=== PATIENT | male | born 1940 | race Caucasian/White ===

== ENCOUNTER → 2018-11-22 12:48 | Outpatient (CLI) | payer MEDICARE, SELFPAY ==
--- NOTE | 2018-11-22 | DI.ECHO.S_ITS ---
[facility] +---------+ : : [address] : [place] : : : : [id number] : : : : Phone: [phone]+ Echocardiogram Report + + :Name: STEVE ADAN Study Date: 11/22/2018 Height: 74 in : :[facility] Exam Location: [facility] Weight: 200 lb : : Gender: Male BSA: 2.2 m2 : :: 1940 Age: 77 yrs BP: 142/80 mmHg: :Reason For Study: CHEST PAIN : : Performed By: Dago Fernandez : :Referring: CELIA MCMAHAN : + + Interpretation Summary 1) Mildly enlarged left ventricle with normal wall motion and normal systolic function (EF 60-65%). 2) Normal right ventricular size and function. 3) Moderate left atrium enlargement. 4) Moderate mitral regurgitation present. 5) The right ventricular systolic pressure is estimated to be at least 31 mmHg based on an estimated right atrial pressure of 3 mm Hg. 6) Compared to the Echo done 03/10/2013, no significant change when compared visually. Procedure: A two-dimensional transthoracic echocardiogram with color flow and Doppler was performed. The study quality was technically adequate. Comparison is made with the echocardiogram of 03/10/13. The patient was in normal sinus rhythm during the exam. Left Ventricle: There is mild asymmetric left ventricular hypertrophy. The left ventricle is mildly dilated. The ejection fraction is estimated to be 60- 65%. There are no focal wall motion abnormalities. Right Ventricle: The right ventricle is normal in size and function. Atria: The left atrium is moderately dilated. The right atrium is mildly dilated. The interatrial septum is intact with no evidence for an atrial septal defect. Mitral Valve: There is mild mitral annular calcification. There is suggestion of mild posterior leaflet prolapse in some views. There is moderate mitral regurgitation. Aortic Valve: The aortic valve is normal in structure and function. The aortic valve is trileaflet. The aortic valve opens well. No aortic regurgitation is present. Tricuspid Valve: The tricuspid valve is normal in structure and function. There is trace tricuspid regurgitation. The right ventricular systolic pressure is estimated to be at least 31 mmHg based on an estimated right atrial pressure of 3 mm Hg. Pulmonic Valve: The pulmonic valve is normal in structure and function. There is trace pulmonic regurgitation. Great Vessels: The aortic root is normal size. The ascending aorta is at the upper limits of normal in size. The pulmonary artery is normal size. The IVC is of normal diameter and collapses greater than 50% with a sniff. This suggests a low right atrial pressure of 3 mm Hg. Pericardium/ Pleura There is no pericardial effusion. There is no pleural effusion. MMode/2D Measurements & Calculations LVIDd: 5.8 cm LVOT diam: 2.3 cm LVIDs: 2.9 cm Ao root diam: 3.3 cm FS: 49.2 % Aortic Jxn: 2.7 cm EPSS: 0.44 cm asc Aorta Diam: 3.6 cm IVSd: 1.3 cm LVPWd: 1.0 cm LV castro. diameter/BSA (cm/m^2): 2.7 LV sys. diameter/BSA (cm/m^2): 1.3 LA dimension: 4.1 cm RA long axis: 5.3 cm LA A2 area: 24.6 cm2 RA area: 22.6 cm2 LA A4 area: 24.3 cm2 RA vol: 82.4 ml LA length (vol): 5.6 cm RA : 37.9 ml/m2 LA vol: 90.3 ml IVC diam: 1.7 cm LA vol index: 41.6 ml/m2 Doppler Measurements & Calculations Ao V2 max: 146.9 cm/sec LVOT Max Harinder: 111.8 cm/sec Ao V2 mean: 106.2 cm/sec LV V1 max P.0 mmHg Ao max P.6 mmHg LV V1 VTI: 22.5 cm Ao mean P.8 mmHg MASTER(I,D): 3.0 cm2 Ao V2 VTI: 33.0 cm MASTER(V,D): 3.3 cm2 sev ratio: 0.68 MASTER indexed to BSA (cm^2/m^2): 1.4 MV E max harinder: 49.5 cm/sec TR max harinder: 262.7 cm/sec MV A max harinder: 76.0 cm/sec TR max P.6 mmHg MV E/A: 0.65 PA V2 max: 82.6 cm/sec Med Peak E' Harinder: 3.9 cm/sec PA V2 mean: 58.1 cm/sec E/E' med: 12.6 PA mean P.5 mmHg Lat Peak E' Harinder: 7.3 cm/sec PA pr(Accel): 39.1 mmHg E/E' lat: 6.8 PA Accel Time: 0.09 sec E/e' average: 9.7 MV dec time: 0.23 sec SV(LVOT): 97.4 ml Reading Physician:04:12 PM
--- NOTE | 2018-11-23 14:55 | P.PCN_ITS ---
Cardiac Stress Test Report Referral & Results Date Patient Seen: 11/23/18 Requesting provider: Chela Wayne Indication: Chest pain Rest ECG: Unremarkable Procedure Note: Today following both written and verbal informed consent the patient was exercised according to a standard Srinivasa protocol patient went for a total of 5 min 22 sec achieving a maximum heart rate of 124 maximum systolic blood pressure of to 110. This is approximately 7.0 METS. Exercise was terminated at this point because of targets for med and patient was unable to go any farther or faster. Patient was also given Cardiolite through a previously started Hep-Lock IV by the nuclear equipment test engineer approximately 1 minute prior to the cessation of exercise. With exercise there were minimal ST segment depression that was all upsloping in the inferior leads that very rapidly resolved in early recovery the suggesting a nonischemic nature Occasional PVCs, multifocal, including ventricular couplets were identified Rare PACs were also identified Functional aerobic impairment rated about 10% on the active scale Impression: No ECG evidence of ischemia Ventricular dysrhythmia as above Please see perfusion imaging report for details regarding possible ischemia as well. Please note: Actual ECG tracings can be found in the PACS system.
--- NOTE | 2018-11-24 06:58 | DI.NM.S_ITS ---
DATE OF SERVICE: 11/22/2018 PROCEDURE: Exercise stress test. INDICATION: Chest pain with known history of coronary artery disease (CAD), status post LAD and RCA stent in 2013 with hypertension and hyperlipidemia. RADIOPHARMACEUTICAL: 26.9 mCi technetium-99m Myoview IV was injected at stress, and 25.6 mCi technetium-99m Myoview IV was injected at rest. CARDIAC STRESS: Patient underwent exercise perfusion study under the supervision of an attending staff. He walked on Srinivasa protocol for 5 minutes 22 seconds and achieved 87% of target heart rate, 7 METs of workload, and functional aerobic impairment of +10%. Patient has hypertensive blood pressure response. Peak blood pressure 210/80. Resting blood pressure 140/78. No chest pain. Patient unable to go faster on treadmill. Baseline EKG revealed sinus rhythm. During stress, there were no convincing ischemic changes. At peak exercise, patient had some isolated PVCs without any ventricular tachycardia. In the immediate recovery, patient had 1 episode of Wenckebach but QRS complex remains narrow QRS complex. Patient also has first-degree AV block. No high- degree AV block seen. RAW DATA: There appears to be adequate myocardial perfusion. GATED STUDY: Stress LV ejection fraction 73% without any obvious wall motion abnormalities. Resting end-diastolic volume 120 mL. No transient ischemic dilatation. TID ratio is 0.94, which is within normal limits. Lung/heart ratio is 0.28, which is within normal limits. MYOCARDIAL PERFUSION: There was normal myocardial perfusion. CONCLUSION: This is a normal myocardial perfusion study. No evidence of convincing ischemia or infarction. Preserved LV function. In the immediate recovery, patient had 1 episode of Wenckebach as well as first-degree AV block without any high-degree AV block. QRS duration remained narrow during Wenckebach. Patient had perfusion study in September 2016. At that time, he was able to walk 7 minutes and 32 seconds on treadmill and had normal myocardial perfusion. At that time, he has baseline PVCs which got improved during exercise and during recovery has PACs. If patient has history of recurrent dizziness or syncope, provide prolonged Holter monitor to rule out significant bradyarrhythmias. Clinical correlation is recommended. Quoc Tavares - SHABBIR/bree/gutierrez doc#: [id number]/job#: [id number] dd: 11/23/2018 18:05:00 dt: 11/24/2018 04:38:00 DICTATING MD/COPIES TO: Enrique Arrieta MD COPIES MNE: ADELFO
== END ==
PROVIDERS: Family Provider Internal Medicine; PCP Internal Medicine; Visit Provider Student in an Organized Health Care Education/Training Program
DX: I34.0 Nonrheumatic mitral (valve) insufficiency (principal); I49.3 Ventricular premature depolarization; R07.9 Chest pain, unspecified; I25.10 Atherosclerotic heart disease of native coronary artery without angina pectoris; I10 Essential (primary) hypertension; E78.5 Hyperlipidemia, unspecified; Z95.5 Presence of coronary angioplasty implant and graft
CPT/HCPCS: 78452; 93016; 93017; 93018; 93306; A9502

== ENCOUNTER 2018-12-19 17:19 | Emergency (ER) | payer MEDICARE, SELFPAY ==
[2018-12-19 17:34] VITALS: BP 163/74; PULSE 58; RESP 18; TEMP 36.5; O2SAT 99; BMI 25.6
--- NOTE | 2018-12-19 17:49 | DI.RAD.S_ITS ---
PROCEDURE: XR THORACIC SPINE 3V INDICATIONS: upper to mid upper back TECHNIQUE: 4 views of the thoracic spine were acquired. COMPARISON: None. FINDINGS: Bones: No acute fractures or dislocations. No acute compression fractures of the thoracic spine. Multilevel thoracic spondylitic changes. No suspicious bony lesions. Soft tissues: No paravertebral stripe thickening. IMPRESSION: Multilevel thoracic spondylosis. No acute fracture or acute compression fractures. Dictated by: Salbador Durham M.D. on 12/19/2018 at 18:38 Approved by: Salbador Durham M.D. on 12/19/2018 at 18:39
--- NOTE | 2018-12-19 18:21 | PC.NURSE ---
Pt fell on side and has pain in center of shoulder blades. Denies other symptoms.
[2018-12-19] MEDS: HYDROCODONE/ACET 5/325 PREPACK 1 BOTTLE MISC (18:50)
[2018-12-19 19:40] VITALS: BP 126/61; PULSE 62; RESP 16; TEMP 36.4; O2SAT 96
--- NOTE | 2018-12-20 01:15 | ED.BACK ---
HPI - Back Pain/Injury General Chief Complaint: Back Pain/Injury Stated Complaint: hit trailer and fell over on right side, in pain Time Seen by Provider: 12/19/18 18:07 Source: patient and family Mode of arrival: ambulatory Limitations: no limitations History of Present Illness HPI Narrative: 77-year-old male nonsmoker with history of hypertension presents with his for evaluation of mid thoracic back pain after a mechanical fall earlier today. The patient was walking around the back of his pickup truck and tripped over the trailer hitch and fell onto his right side. He did not make direct impact with his back. Since the fall he has had mid upper back pain which is worse with motion and improves with rest. He denies any chest pain or shortness of breath. He denies nausea, vomiting. He denies any loss of consciousness or use of blood thinners. He has full recall of the event. He denies other injury.. He has no numbness, tingling or weakness. MD Complaint: back pain, back injury and fall Onset (ago): hour(s) Duration: constant Similar Symptoms Previously: No Location: thoracic spine Severity: moderate Quality: sharp and stabbing Radiation: none Relieving factors: sitting upright Exacerbating factors: movement Context: fall Associated symptoms: denies other symptoms Related Data Home Medications Medication Instructions Recorded Confirmed aspirin 325 mg PO HS #0 08/19/11 amlodipine [Norvasc] 5 mg PO QDAY #0 tab 06/06/16 atorvastatin [Lipitor] 20 mg PO HS #30 tab 06/06/16 Previous Rx's Medication Instructions Recorded cephalexin [Keflex] 500 mg PO TID #21 cap 06/06/16 cyclobenzaprine 10 mg PO TID PRN #14 tab 12/19/18 hydrocodone-acetaminophen 1 tab PO Q4-6H PRN #10 tab 12/19/18 Allergies Allergy/AdvReac Type Severity Reaction Status Date / Time lisinopril [LISINOPRIL] AdvReac Mild COUGH Verified 12/19/18 17:39 Review of Systems Constitutional Denies chills, Denies fever(s), Denies lethargy and Denies weakness Eyes Denies change in vision, Denies eye discharge, Denies irritation and Denies loss of vision ENT Ears, Nose, Mouth, and Throat: Denies change in voice, Denies neck pain and Denies sore throat Cardiovascular Denies chest pain, Denies irregular heart rhythm, Denies lightheadedness, Denies palpitations, Denies dyspnea, Denies dyspnea on exertion and Denies orthopnea Respiratory Denies cough, Denies dyspnea, Denies dyspnea on exertion and Denies wheezing Gastrointestinal Gastrointestinal: Denies abdominal pain, Denies change in bowel habits, Denies diarrhea, Denies nausea and Denies vomiting Genitourinary Denies hematuria, Denies flank pain, Denies urinary incontinence and Denies urinary urgency Musculoskeletal Reports back pain and Denies neck pain Integumentary/Breasts Denies pruritus, Denies erythema, Denies rash and Denies wounds Neurologic Denies confusion, Denies loss of vision and Denies weakness Psychiatric Denies anxiety, Denies confusion, Denies depression, Denies homicidal ideation and Denies suicidal ideation Endocrine Denies palpitations Hematologic/Lymphatic Denies easy bruising Allergic/Immunologic Denies wheezing PFSH Social History Smoking Status: Never smoker Social History Smoking Status: Never smoker Exam Narrative Exam Narrative: GENERAL: This is a well-nourished, well-developed patient, in mild distress. GCS 15 HEAD: Atraumatic. Normocephalic. No temporal or scalp tenderness. EYES: Pupils equal round and reactive. Extraocular motions intact. No scleral icterus. No injection or drainage. ENT: Nose without bleeding, purulent drainage or septal hematoma. Throat without erythema, tonsillar hypertrophy or exudate. Uvula midline. Airway patent. NECK: Trachea midline. No JVD or lymphadenopathy. Supple, nontender, no meningeal signs. CARDIOVASCULAR: Regular rate and rhythm without murmurs, gallops, or rubs. RESPIRATORY: Clear to auscultation. Breath sounds equal bilaterally. No wheezes, rales, or rhonchi. GASTROINTESTINAL: Abdomen soft, non-tender, nondistended. No hepato-splenomegaly, or palpable masses. No guarding. EXTREMITIES: No clubbing, cyanosis, or edema. No joint tenderness, effusion, or edema noted. BACK: mid thoracic paraspinal tenderness, no bony tenderness or step-off. No flank tenderness. NEURO: AOx3. SKIN: No rash or erythema. Initial Vital Signs Initial Vital Signs: Vital Signs Temperature 97.7 F 12/19/18 17:34 Pulse Rate 58 L 12/19/18 17:34 Respiratory Rate 18 12/19/18 17:34 Blood Pressure 163/74 H 12/19/18 17:34 Pulse Oximetry 99 12/19/18 17:34 Course Orders Ordered: ED Orders 12/19/18 17:49 XR thoracic spine 3V Stat Discontinued Medications Hydrocodone Bitart/Acetaminophen (Vicodin Prepack) 1 bottle MISC SEEINSTR ONE Stop: 12/19/18 18:40 Last Admin: 12/19/18 18:50 Dose: 1 bottle Vital Signs - 8 hr 12/19/18 17:34 12/19/18 19:40 Temperature 97.7 F 97.5 F L Pulse Rate 58 L 62 Respiratory Rate 18 16 Blood Pressure 163/74 H 126/61 Pulse Oximetry 99 96 [facility] - Back Pain/Injury Imaging Data Thoracic Xray: Radiologist's impression: [address] [address] XRay Report Signed Patient: Quoc Tavares WMR#: [id number] : 1940cct:[id number] Age/Sex: 77 / MDate of Service: 12/19/18 Loc: ED Accession Number: [id number] Procedure: XR thoracic spine 3V Ordering Provider: Isac Hannon M.D. PROCEDURE: XR THORACIC SPINE 3V INDICATIONS: upper to mid upper back TECHNIQUE: 4 views of the thoracic spine were acquired. COMPARISON: None. FINDINGS: Bones: No acute fractures or dislocations. No acute compression fractures of the thoracic spine. Multilevel thoracic spondylitic changes. No suspicious bony lesions. Soft tissues: No paravertebral stripe thickening. IMPRESSION: Multilevel thoracic spondylosis. No acute fracture or acute compression fractures. Dictated by: Salbador Durham M.D. on 12/19/2018 at 18:38 Approved by: Salbador Durham M.D. on 12/19/2018 at 18:39 [facility] Narrative Medical decision making narrative: patient had a purely mechanical fall and denies any prodromal symptoms. He landed on his right arm which is asymptomatic, but complains of midthoracic pain. X-ray is unremarkable. discussion at bedside with patient and regarding the need for advanced imaging, which is not indicated right now. They have been given return precautions and have verbalized understanding. They had questions answered to their apparent satisfaction Discharge Plan Departure Patient Disposition: Home Clinical Impression: Thoracic back pain Qualifiers: Chronicity: acute Back pain laterality: midline Qualified Code(s): M54.6 - Pain in thoracic spine Discharge Date/Time: 12/19/18 19:44 Interventions: ED Discharge Assessment Last Done: 12/19/18 19:40 Instructions: DI for Muscle Strain Activity Restrictions/Additional Instructions: *You have been diagnosed with [ acute thoracic strain] *What to do: *Take medications as directed *Follow up with your primary care provider in 2-3 days, call for an appointment. Let them know you were seen in the Emergency Department and that we ask that you be seen in follow up *Return to ER if you should have any new, worsening or concerning symptoms, such as [ worsening pain, shortness of breath or other bothersome symptoms] You have been prescribed narcotic medications. While on these medications you cannot drive or operate heavy machinery. Additionally you cannot sign legal documents or perform any duties such as this. Many people get constipated on narcotic medications so it would be advisable to discuss stool softeners with the pharmacist when you roll picker your prescription. Please understand that we cannot provide further refills of narcotics or controlled substances through the ED and your pain management will need to be through your Primary Care Provider Prescriptions: New cyclobenzaprine 10 mg tablet 10 mg PO TID PRN (Reason: muscle spasm) Qty: 14 RF: 0 hydrocodone-acetaminophen 5-325 mg tablet 1 tab PO Q4-6H PRN (Reason: pain) Qty: 10 RF: 0 No Action aspirin 325 MG tablet,delayed release (DR/EC) 325 mg PO HS Qty: 0 RF: 0 atorvastatin [Lipitor] 20 MG tablet 20 mg PO HS Qty: 30 RF: 0 amlodipine [Norvasc] 5 MG tablet 5 mg PO QDAY Qty: 0 RF: 0 cephalexin [Keflex] 500 MG capsule 500 mg PO TID Qty: 21 RF: 0 Referrals: Edis Okeefe MD [Primary Care Provider] -
--- NOTE | 2018-12-20 01:20 | ED_ITS ---
HPI - Back Pain/Injury General Chief Complaint: Back Pain/Injury Stated Complaint: hit trailer and fell over on right side, in pain Time Seen by Provider: 12/19/18 18:07 Source: patient and family Mode of arrival: ambulatory Limitations: no limitations History of Present Illness HPI Narrative: 77-year-old male nonsmoker with history of hypertension presents with his for evaluation of mid thoracic back pain after a mechanical fall earlier today. The patient was walking around the back of his pickup truck and tripped over the trailer hitch and fell onto his right side. He did not make direct impact with his back. Since the fall he has had mid upper back pain which is worse with motion and improves with rest. He denies any chest pain or shortness of breath. He denies nausea, vomiting. He denies any loss of consciousness or use of blood thinners. He has full recall of the event. He denies other injury.. He has no numbness, tingling or weakness. MD Complaint: back pain, back injury and fall Onset (ago): hour(s) Duration: constant Similar Symptoms Previously: No Location: thoracic spine Severity: moderate Quality: sharp and stabbing Radiation: none Relieving factors: sitting upright Exacerbating factors: movement Context: fall Associated symptoms: denies other symptoms Related Data Home Medications Medication Instructions Recorded Confirmed aspirin 325 mg PO HS #0 08/19/11 amlodipine [Norvasc] 5 mg PO QDAY #0 tab 06/06/16 atorvastatin [Lipitor] 20 mg PO HS #30 tab 06/06/16 Previous Rx's Medication Instructions Recorded cephalexin [Keflex] 500 mg PO TID #21 cap 06/06/16 cyclobenzaprine 10 mg PO TID PRN #14 tab 12/19/18 hydrocodone-acetaminophen 1 tab PO Q4-6H PRN #10 tab 12/19/18 Allergies Allergy/AdvReac Type Severity Reaction Status Date / Time lisinopril [LISINOPRIL] AdvReac Mild COUGH Verified 12/19/18 17:39 Review of Systems Constitutional Denies chills, Denies fever(s), Denies lethargy and Denies weakness Eyes Denies change in vision, Denies eye discharge, Denies irritation and Denies loss of vision ENT Ears, Nose, Mouth, and Throat: Denies change in voice, Denies neck pain and Denies sore throat Cardiovascular Denies chest pain, Denies irregular heart rhythm, Denies lightheadedness, Denies palpitations, Denies dyspnea, Denies dyspnea on exertion and Denies orthopnea Respiratory Denies cough, Denies dyspnea, Denies dyspnea on exertion and Denies wheezing Gastrointestinal Gastrointestinal: Denies abdominal pain, Denies change in bowel habits, Denies diarrhea, Denies nausea and Denies vomiting Genitourinary Denies hematuria, Denies flank pain, Denies urinary incontinence and Denies urinary urgency Musculoskeletal Reports back pain and Denies neck pain Integumentary/Breasts Denies pruritus, Denies erythema, Denies rash and Denies wounds Neurologic Denies confusion, Denies loss of vision and Denies weakness Psychiatric Denies anxiety, Denies confusion, Denies depression, Denies homicidal ideation and Denies suicidal ideation Endocrine Denies palpitations Hematologic/Lymphatic Denies easy bruising Allergic/Immunologic Denies wheezing PFSH Social History Smoking Status: Never smoker Social History Smoking Status: Never smoker Exam Narrative Exam Narrative: GENERAL: This is a well-nourished, well-developed patient, in mild distress. GCS 15 HEAD: Atraumatic. Normocephalic. No temporal or scalp tenderness. EYES: Pupils equal round and reactive. Extraocular motions intact. No scleral icterus. No injection or drainage. ENT: Nose without bleeding, purulent drainage or septal hematoma. Throat without erythema, tonsillar hypertrophy or exudate. Uvula midline. Airway patent. NECK: Trachea midline. No JVD or lymphadenopathy. Supple, nontender, no meningeal signs. CARDIOVASCULAR: Regular rate and rhythm without murmurs, gallops, or rubs. RESPIRATORY: Clear to auscultation. Breath sounds equal bilaterally. No wheezes, rales, or rhonchi. GASTROINTESTINAL: Abdomen soft, non-tender, nondistended. No hepato- splenomegaly, or palpable masses. No guarding. EXTREMITIES: No clubbing, cyanosis, or edema. No joint tenderness, effusion, or edema noted. BACK: mid thoracic paraspinal tenderness, no bony tenderness or step-off. No flank tenderness. NEURO: AOx3. SKIN: No rash or erythema. Initial Vital Signs Initial Vital Signs: Vital Signs Temperature 97.7 F 12/19/18 17:34 Pulse Rate 58 L 12/19/18 17:34 Respiratory Rate 18 12/19/18 17:34 Blood Pressure 163/74 H 12/19/18 17:34 Pulse Oximetry 99 12/19/18 17:34 Course Orders Ordered: ED Orders 12/19/18 17:49 XR thoracic spine 3V Stat Discontinued Medications Hydrocodone Bitart/Acetaminophen (Vicodin Prepack) 1 bottle MISC SEEINSTR ONE Stop: 12/19/18 18:40 Last Admin: 12/19/18 18:50 Dose: 1 bottle Vital Signs - 8 hr 12/19/18 17:34 12/19/18 19:40 Temperature 97.7 F 97.5 F L Pulse Rate 58 L 62 Respiratory Rate 18 16 Blood Pressure 163/74 H 126/61 Pulse Oximetry 99 96 [facility] - Back Pain/Injury Imaging Data Thoracic Xray: Radiologist's impression: [address] [address] XRay Report Signed Patient: Quoc Tavares WMR#: [id number] : [id number]:[id number] Age/Sex: 77 / MDate of Service: 12/19/18 Loc: ED Accession Number: [id number] Procedure: XR thoracic spine 3V Ordering Provider: Isac Hannon M.D. PROCEDURE: XR THORACIC SPINE 3V INDICATIONS: upper to mid upper back TECHNIQUE: 4 views of the thoracic spine were acquired. COMPARISON: None. FINDINGS: Bones: No acute fractures or dislocations. No acute compression fractures of the thoracic spine. Multilevel thoracic spondylitic changes. No suspicious bony lesions. Soft tissues: No paravertebral stripe thickening. IMPRESSION: Multilevel thoracic spondylosis. No acute fracture or acute compression fractures. Dictated by: Salbador Durham M.D. on 12/19/2018 at 18:38 Approved by: Salbador Durham M.D. on 12/19/2018 at 18:39 [facility] Narrative Medical decision making narrative: patient had a purely mechanical fall and denies any prodromal symptoms. He landed on his right arm which is asymptomatic, but complains of midthoracic pain. X-ray is unremarkable. discussion at bedside with patient and regarding the need for advanced imaging, which is not indicated right now. They have been given return precautions and have verbalized understanding. They had questions answered to their apparent satisfaction Discharge Plan Departure Patient Disposition: Home Clinical Impression: Thoracic back pain Qualifiers: Chronicity: acute Back pain laterality: midline Qualified Code(s): M54.6 - Pain in thoracic spine Discharge Date/Time: 12/19/18 19:44 Interventions: ED Discharge Assessment Last Done: 12/19/18 19:40 Instructions: DI for Muscle Strain Activity Restrictions/Additional Instructions: *You have been diagnosed with [ acute thoracic strain] *What to do: *Take medications as directed *Follow up with your primary care provider in 2-3 days, call for an appoi ntment. Let them know you were seen in the Emergency Department and that we ask that you be seen in follow up *Return to ER if you should have any new, worsening or concerning symptoms, such as [ worsening pain, shortness of breath or other bothersome symptoms] You have been prescribed narcotic medications. While on these medications you cannot drive or operate heavy machinery. Additionally you cannot sign legal documents or perform any duties such as this. Many people get constipated on narcotic medications so it would be advisable to discuss stool softeners with the pharmacist when you package pick up your prescription. Please understand that we cannot provide further refills of narcotics or controlled substances through the ED and your pain management will need to be through your Primary Care Provider Prescriptions: New cyclobenzaprine 10 mg tablet 10 mg PO TID PRN (Reason: muscle spasm) Qty: 14 RF: 0 hydrocodone-acetaminophen 5-325 mg tablet 1 tab PO Q4-6H PRN (Reason: pain) Qty: 10 RF: 0 No Action aspirin 325 MG tablet,delayed release (DR/EC) 325 mg PO HS Qty: 0 RF: 0 atorvastatin [Lipitor] 20 MG tablet 20 mg PO HS Qty: 30 RF: 0 amlodipine [Norvasc] 5 MG tablet 5 mg PO QDAY Qty: 0 RF: 0 cephalexin [Keflex] 500 MG capsule 500 mg PO TID Qty: 21 RF: 0 Referrals: Edis Okeefe MD [Primary Care Provider] -
== END 2018-12-19 19:44 | disposition home or self-care (01) ==
PROVIDERS: Emergency Provider Emergency Medicine; PCP Internal Medicine
DX: M54.6 Pain in thoracic spine (principal); W01.0XXA Fall on same level from slipping, tripping and stumbling without subsequent striking against object, initial encounter
CPT/HCPCS: 72072; 99282; 99283

== ENCOUNTER 2019-04-13 07:57 | Day surgery (SDC) | payer MEDICARE, SELFPAY ==
--- NOTE | 2019-04-13 | PATH_ITS ---
[facility] Accession Number: [id number] . 01 Material submitted: . PART A: cecum - CECAL POLYPS PART B: colon - ASCENDING COLON POLYPS PART C: colon - TRANSVERSE COLON POLYPS . 01 Clinical history: . COLONOSCOPY W/POLYPECTOMY . 02 Diagnosis: A. Cecum, Polyps: Fragments of tubular adenoma. . B. Ascending Colon, Polyps: Fragments of tubular adenoma and fragment of sessile serrated adenoma. . C. Transverse Colon, Polyps: Fragments of tubular adenoma and fragment of hyperplastic polyp. V/04/14/2019 . 02 Electronically signed: . Jim Head MD, PhD, Pathologist NPI- [id number] . 01 Gross description: . Part A: CECAL POLYPS: Received in formalin are multiple fragment(s) of haley, soft tissue measuring 0.1 x 0.1 x 0.1 cm to 0.3 x 0.3 x 0.2 cm which is entirely submitted and submitted entirely in 1 cassette(s) Part B: ASCENDING COLON POLYPS: Received in formalin are multiple fragment(s) of haley, soft tissue measuring 0.1 x 0.1 x 0.1 cm to 0.3 x 0.3 x 0.2 cm which is entirely submitted and submitted entirely in 1 cassette(s) Part C: TRANSVERSE COLON POLYPS: Received in formalin is 1 fragment(s) of haley, soft tissue measuring 0.1 x 0.1 x 0.1 cm to 0.3 x 0.2 x 0.2 cm which is entirely submitted and submitted entirely in 1 cassette(s) /[facility] . 02 Pathologist provided ICD-10: D12.0, D12.2, D12.3 . 02 CPT . 233343, 160302, [id number] Performed at: 01 [facility] [address] [place] [address], [place], [place] [id number] MD Dalton Morillo MD Phone: [phone] [facility]formed at: [facility] [address] [place], [place] [id number] MD Beatriz Gary MD Phone: [phone]
[2019-04-13 08:04] VITALS: BMI 25.6
[2019-04-13 08:16] VITALS: BP 131/68; PULSE 55; RESP 16; TEMP 36.1; O2SAT 95
[2019-04-13 08:18] VITALS: BMI 25.6
--- NOTE | 2019-04-13 08:40 | PM.HP.1 ---
History of Present Illness Chief complaint: 40066 Colonoscopy Patient History Social History household members: spouse Smoking Status: Never smoker Family & Social History Social History: household members spouse Tobacco & Substance use: Smoking Status Never smoker alcohol intake frequency a few times a week Substance Use Type does not use Meds Home Medications Medication Instructions Recorded Confirmed Type aspirin 325 mg PO HS #0 08/19/11 History amlodipine [Norvasc] 5 mg PO QDAY #0 tab 06/06/16 History atorvastatin [Lipitor] 20 mg PO HS #30 tab 06/06/16 History carvedilol 3.125 mg PO BID 04/13/19 04/13/19 History hydrochlorothiazide 12.5 mg PO DAILY 04/13/19 04/13/19 History isosorbide dinitrate 30 mg PO BID 04/13/19 04/13/19 History losartan 50 mg PO BID 04/13/19 04/13/19 History Allergies Allergy/AdvReac Type Severity Reaction Status Date / Time lisinopril [LISINOPRIL] AdvReac Mild COUGH Verified 12/19/18 17:39 Review of Systems Review of Systems All systems reviewed & are unremarkable except as noted in HPI and below Exam Vital Signs (past 8 hours): - 04/13/19 08:16 Temperature 97.0 F L Pulse Rate 55 L Respiratory Rate 16 Blood Pressure 131/68 Pulse Oximetry 95 Oxygen Delivery Method Room Air Narrative Exam Narrative: Awake alert and oriented x3, pupils equal round reactive to light, heart regular rate rhythm, lungs clear, abdomen nondistended nontender, no lower extremity edema Assessment & Plan Assessment & Plan narrative: Screening colonoscopy
[2019-04-13] MEDS: SODIUM CHLORIDE 0.9% 1,000 ML 200 ML IV (08:55)
[2019-04-13] MEDS: MIDAZOLAM 5 MG/5 ML VIAL IV (09:32)
[2019-04-13] MEDS: fentaNYL 250 MCG/5 ML INJ IV (09:33)
[2019-04-13 09:50] VITALS: BP 113/62; PULSE 48; RESP 16; O2SAT 94
[2019-04-13 09:55] VITALS: BP 125/65; PULSE 50; RESP 16; O2SAT 95
--- NOTE | 2019-04-13 09:58 | P.OP.ENDO_ITS ---
Operative Date/Time/Diagnoses Date of procedure: 04/13/19 Procedure & Clinicians Study performed: Colonoscopy with snare polypectomy and biopsy Moderate conscious sedation was administered by the endoscopy nurse and supervised by the endoscopist. The following parameters were monitored: Oxygen saturation, heart rate, blood pressure, and response to care. Sedation: 3 mg midazolam, 100 micro g fentanyl Indications: Family history of colon cancer in first-degree relative. Personal history of colon polyps. Procedure Notes Procedure in detail: Prior to the procedure, history and physical was performed, and patient medications and allergies were reviewed. Preprocedure nursing history and assessment was reviewed. Patient identification and proposed proced ure were verified by the physician and nurse in the procedure room. The physical status of the patient was reassessed after the procedure. After informed consent was obtained including risks, benefits, and alternatives, the scope was passed under direct vision. Throughout the procedure, the patient's blood pressure, pulse, and oxygen saturations were monitored continuously. The colonoscope was introduced through the anus and advanced to the cecum as identified by the appendiceal orifice and ileocecal valve. The patient tolerated the procedure well. Bowel prep was deemed adequate to detect polyps greater than 5 mm. Perianal examination unremarkable. Digital rectal examination normal except for decreased sphincter tone. Retroflexion in the rectum revealed grade 2 internal hemorrhoids Many medium mouth diverticula noted in the sigmoid colon. Six 3 mm sessile polyps in the ascending and transverse colon resected and retrieved with a Jumbo biopsy forceps Four 4 -7 mm sessile polyps in the cecum, ascending colon, and transverse colon removed with a cold snare and retrieved Sedation minutes: 32 Complications: other (EBL minimal. No complications) Plan for aftercare: Follow-up pathology results Repeat colonoscopy at a date to be determined based on pathology results High fiber diet Resume home medications Discharge home with escort
[2019-04-13 10:00] VITALS: BP 118/67; PULSE 50; RESP 18; O2SAT 95
[2019-04-13 10:05] VITALS: BP 129/67; PULSE 50; RESP 16; O2SAT 96
[2019-04-13 10:16] VITALS: BP 140/76; PULSE 50; RESP 16; TEMP 36.3; O2SAT 97
== END 2019-04-13 10:22 | disposition home or self-care (01) ==
PROVIDERS: PCP Internal Medicine; Visit Provider Internal Medicine
PROC: 0DJD8ZZ Inspection of Lower Intestinal Tract, Via Natural or Artificial Opening Endoscopic (ICD-10-PCS; CPT 45378; principal; 2019-04-13 09:00)
DX: Z86.010 Personal history of colon polyps (principal); Z80.0 Family history of malignant neoplasm of digestive organs; D12.0 Benign neoplasm of cecum; D12.3 Benign neoplasm of transverse colon; D12.2 Benign neoplasm of ascending colon
CPT/HCPCS: 45385; 45380; 88305; J2250; J3010

== ENCOUNTER → 2019-05-12 07:50 | Outpatient (CLI) | payer MEDICARE, SELFPAY ==
[2019-05-12 08:49] LABS: HEMOLYSIS < 15 (0-50)
[2019-05-12 08:54] LABS: BUN Creatinine Ratio 28.6 (6-22); Blood Urea Nitrogen 20 mg/dL (9-20); Calcium 9.3 mg/dL (8.4-10.2); Carbon Dioxide 27 mmol/L (22-32); Chloride 105 mmol/L (98-107); Estimated Glomerular Filt Rate > 60.0 mL/min (>60); Glucose 114 mg/dL (80-110); Potassium 3.9 mmol/L (3.4-5.1); Sodium 141 mmol/L (137-145)
[2019-05-12 09:13] LABS: LDL Cholesterol Direct 94 mg/dL (<100)
== END ==
PROVIDERS: Family Provider Internal Medicine; PCP Internal Medicine; Visit Provider Internal Medicine
DX: I10 Essential (primary) hypertension (principal); E78.5 Hyperlipidemia, unspecified
CPT/HCPCS: 36415; 80048; 83721

== ENCOUNTER → 2019-08-19 14:26 | Outpatient (ROUT) | payer MEDICARE, SELFPAY ==
[2019-08-19 15:43] LABS: BUN Creatinine Ratio 32.5 (6-22); Blood Urea Nitrogen 26 mg/dL (9-20); Calcium 9.8 mg/dL (8.4-10.2); Carbon Dioxide 28 mmol/L (22-32); Chloride 102 mmol/L (98-107); Estimated Glomerular Filt Rate > 60.0 mL/min (>60); Glucose 119 mg/dL (80-110); HEMOLYSIS < 15 (0-50); Potassium 4.8 mmol/L (3.4-5.1); Sodium 141 mmol/L (137-145)
[2019-08-19 15:54] LABS: LDL Cholesterol Direct 103 mg/dL (<100)
== END ==
PROVIDERS: Family Provider Internal Medicine; PCP Internal Medicine; Visit Provider Internal Medicine
DX: I10 Essential (primary) hypertension (principal); E78.5 Hyperlipidemia, unspecified
CPT/HCPCS: 80048; 83721

== ENCOUNTER → 2019-10-03 14:54 | Outpatient (ROUT) | payer MEDICARE, SELFPAY ==
[2019-10-03 15:26] LABS: Blood Urea Nitrogen 24 mg/dL (9-20); Calcium 10.1 mg/dL (8.4-10.2); Carbon Dioxide 29 mmol/L (22-32); Chloride 99 mmol/L (98-107); Estimated Glomerular Filt Rate > 60.0 mL/min (>60); Glucose 119 mg/dL (80-110); HEMOLYSIS < 15 (0-50); Potassium 3.9 mmol/L (3.4-5.1); Sodium 141 mmol/L (137-145)
[2019-10-03 15:36] LABS: LDL Cholesterol Direct 103 mg/dL (<100)
== END ==
PROVIDERS: Family Provider Internal Medicine; PCP Internal Medicine; Visit Provider Internal Medicine
DX: E78.5 Hyperlipidemia, unspecified (principal)
CPT/HCPCS: 80048; 83721

== ENCOUNTER 2019-11-19 17:57 | Observation (INO) | payer MEDICARE, SELFPAY ==
[2019-11-19 18:00] VITALS: BP 119/57; PULSE 55; RESP 14; TEMP 36.6; O2SAT 100; BMI 23.3
--- NOTE | 2019-11-19 18:06 | DI.RAD.S_ITS ---
PROCEDURE: XR CHEST 1V INDICATIONS: chest pain TECHNIQUE: One view of the chest was acquired. COMPARISON: [facility], , CHEST 1 VIEW, 03/08/2013, 22:45. FINDINGS: Surgical changes and devices: None. Lungs and pleura: Scattered subsegmental atelectasis and/or scarring. No focal consolidation. No pleural effusions or pneumothorax. Mediastinum: Mediastinal contours appear normal. Heart size is normal. Bones and chest wall: No suspicious bony lesions. Overlying soft tissues appear unremarkable. IMPRESSION: No acute disease Dictated by: Jorje Calvert M.D. on 11/19/2019 at 18:50 Approved by: Jorje Calvert M.D. on 11/19/2019 at 18:51
[2019-11-19 18:16] LABS: Add Manual Diff / Slide Review NO; Basophils Absolute Auto 100 /uL (0-100); Basophils Percent Auto 0.5 % (0-2); Eosinophils Absolute Auto 200 /uL (0-450); Eosinophils Percent Auto 1.2 % (2-4); Hematocrit 38.9 % (41-53); Hemoglobin 13.4 g/dL (13.5-17.5); Lymphocytes Absolute Auto 700 /uL (1100-4500); Lymphocytes Percent Auto 4.3 % (25-40); Mean Corpuscular HGB Conc 34.5 % (30-36); Mean Corpuscular Hemoglobin 32.2 PG (26-34); Mean Corpuscular Volume 93.4 fL (80-100); Monocytes Absolute Auto 1300 /uL (0-900); Monocytes Percent Auto 7.8 % (3-14); Neutrophils Absolute Auto 14400 /uL (1500-7000); Neutrophils Percent Auto 86.2 % (50-75); Platelet Count 224 X10^3/uL (150-400); Red Blood Cell Count 4.17 X10^6/uL (4.5-5.9); Red Cell Distribution Width 12.9 % (11.6-14.8); White Blood Cell Count 16.7 X10^3/uL (4.5-11.0)
[2019-11-19 18:24] LABS: PTT Partial Thromboplastin Tim 28 SECONDS (26.4-36.2)
[2019-11-19 18:26] LABS: Alanine Aminotransferase 18 IU/L (<50); Albumin 4.3 g/dL (3.5-5.0); Albumin Globulin Ratio 1.3 (1.0-2.8); Alkaline Phosphatase 94 U/L (38-126); Aspartate Aminotransferase 31 IU/L (17-59); Blood Urea Nitrogen 23 mg/dL (9-20); Carbon Dioxide 25 mmol/L (22-32); Chloride 98 mmol/L (98-107); Creatine Kinase 350 U/L (55-170); Estimated Glomerular Filt Rate > 60.0 mL/min (>60); Globulin 3.3 g/dL (1.7-4.1); Glucose 219 mg/dL (80-110); HEMOLYSIS < 15 (0-50); Lipase 104 U/L (23-300); Potassium 3.5 mmol/L (3.4-5.1); Sodium 135 mmol/L (137-145); Total Protein 7.6 g/dL (6.3-8.2)
--- NOTE | 2019-11-19 18:26 | DI.CT.S_ITS ---
PROCEDURE: CT CERVICAL SPINE WO CON INDICATIONS: fall, pain at C7-T1, please scan down through T3 TECHNIQUE: Noncontrast 3 mm thick sections acquired from the skull base to the T4 level. Sagittal and coronal reformats were then constructed. For radiation dose reduction, the following was used: automated exposure control, adjustment of mA and/or kV according to patient size. COMPARISON: [facility], CT, C-SPINE WITHOUT CONTRAST, 08/19/2011, 9:38. FINDINGS: Image quality: Excellent. Bones: No fractures or dislocations. Visualized superior ribs are intact. Diffuse osteopenia. Multilevel cervical and thoracic spondylosis, and facet arthropathy. Lateral curvature of the spine is partially visualized Soft tissues: Prevertebral soft tissues are normal in thickness. No paravertebral hematomas. No apical pneumothoraces. Carotid atherosclerotic plaques incidentally noted. IMPRESSION: No definite acute fracture or malalignment Diffuse osteopenia which limits study sensitivity Diffuse spondylosis and facet arthropathy Bilateral carotid atherosclerosis. Dictated by: Jorje Calvert M.D. on 11/19/2019 at 19:03 Approved by: Jorje Calvert M.D. on 11/19/2019 at 19:07
--- NOTE | 2019-11-19 18:27 | DI.CT.S_ITS ---
PROCEDURE: CT HEAD/BRAIN WO CON INDICATIONS: syncope with LOC, hit head, TECHNIQUE: Noncontrast 4.5 mm thick angled axial sections acquired from the foramen magnum to the vertex, with coronal and sagittal reformats. For radiation dose reduction, the following was used: automated exposure control, adjustment of mA and/or kV according to patient size. COMPARISON: [facility], CT, HEAD WITHOUT CONTRAST, 08/19/2011, 9:38. FINDINGS: Image quality: Excellent. CSF spaces: Basal cisterns are patent. No extra-axial fluid collections. Ventricles are normal in size and shape. Brain: No midline shift. No intracranial masses or hemorrhage. Ball-white matter interface is normal. Prominent anterior falx calcification. Skull and face: Calvarium and visualized facial bones are intact, without suspicious lesions. Sinuses: Visualized sinuses and mastoids are clear. IMPRESSION: No acute intracranial process. Dictated by: Jorje Calvert M.D. on 11/19/2019 at 19:02 Approved by: Jorje Calvert M.D. on 11/19/2019 at 19:03
--- NOTE | 2019-11-19 18:28 | ED.GENADULT ---
HPI - General Adult General Chief complaint: Syncope Stated complaint: Diarrhea, also had a fall at home Time Seen by Provider: 11/19/19 18:08 Source: patient Mode of arrival: Wheelchair Limitations: no limitations History of Present Illness HPI narrative: 78-year-old gentleman with a history of hypertension and hyperlipidemia. He denies cardiovascular disease but he does take isosorbide mononitrate. Presents tonight after having a syncopal episode with subsequent fall at home. His problems began approximately 4-5 days ago with a day of diarrhea. This resolved and he wasn't feeling his best but was feeling like he was improving. He has a chronic cough that is dry, nonproductive and responds well to Mucinex. Over the last 3 days that cough has been a bit worse to accompany his general malaise and increasing weakness. This afternoon he had another 3-4 hours of watery diarrhea. He was heading toward the bathroom this afternoon when as he was adjusting his pains he became more and more dizzy and then he awoke on the floor in the bathroom. His describes a very loud thump and he was too weak to get up by himself again. She describes a number of minutes of altered mental status when she initially went to check on him. He currently is complaining of neck pain at approximately C7-T1, weakness, he has no chest pain, no headache, no abdominal pain and no focal neurologic symptoms. He does note that he has had this chronic cough today, he took Mucinex this morning and is not coughing currently. He denies any nausea or vomiting. No fevers or chills, no dysuria or frequency, no edema and no skin rashes Related Data Home Medications Medication Instructions Recorded Confirmed aspirin 162.5 mg PO DAILY #0 08/19/11 11/19/19 amlodipine 10 mg PO DAILY 11/19/19 11/19/19 atorvastatin 80 mg PO DAILY 11/19/19 11/19/19 carvedilol 6.25 mg PO BID 11/19/19 11/19/19 chlorthalidone 25 mg PO DAILY 11/19/19 11/19/19 hydralazine 50 mg PO BID 11/19/19 11/19/19 isosorbide mononitrate 30 mg PO BID 11/19/19 11/19/19 losartan 50 mg PO BID 11/19/19 11/19/19 Allergies Allergy/AdvReac Type Severity Reaction Status Date / Time lisinopril [LISINOPRIL] AdvReac Mild COUGH Verified 11/19/19 18:10 Review of Systems Review of Systems Narrative: All systems reviewed and are unremarkable except as noted in HPI and below Patient History Medical History (Updated 11/19/19 @ 20:31 by Cydney Workman MD) H/O myocardial perfusion scan (Acute) Hyperlipidemia (Acute) Hypertension (Acute) Pulmonary embolism (Acute) Surgical History (Updated 11/19/19 @ 20:31 by Cydney Workman MD) H/O cardiac catheterization (Acute) History of hip surgery (Acute) Social History household members: spouse Smoking Status: Never smoker Smoking Status: Never smoker alcohol intake frequency: a few times a week Substance Use Type: does not use Exam Narrative Exam Narrative: General: Pale and minimally diaphoretic however, able to give a complete and coherent history. Well-nourished well-developed HEENT: Moist mucous membranes, normal sclera with reactive pupils, Neck: No JVD, supple. Point tenderness at C7/T1 Respiratory: Lungs are clear to auscultation, no wheezing no rales no rhonchi. Full and symmetrical air movement. No tenderness with AP compression of the thorax or with manipulation of ribs Cardiac: Regular rate and rhythm no murmurs no bruits Abdomen: Soft nontender, hyperactive bowel tones, no flank pain Skin: Pale, mild diaphoresis, no rashes Neurologic: Grossly neurologically intact with no obvious asymmetries or abnormalities, globally weak Extremities: No trauma, well perfused Psych: Cooperative, appropriate insight and affect Initial Vital Signs Initial Vital Signs: Vital Signs Temperature 97.9 F 11/19/19 18:00 Pulse Rate 55 L 11/19/19 18:00 Respiratory Rate 14 11/19/19 18:00 Blood Pressure 119/57 L 11/19/19 18:00 Pulse Oximetry 100 11/19/19 18:00 Course Orders Ordered: ED Orders 11/19/19 18:06 XR chest 1V Stat Complete Blood Count AUTO DIFF Stat Comprehensive Metabolic Panel Stat Lipase Stat Partial Thromboplastin Time Stat Procalcitonin Stat Prothrombin Time INR Stat Troponin & CK Cardiac Panel Stat EKG-12 Lead Stat 11/19/19 18:26 CT cervical spine wo con Stat 11/19/19 18:27 CT head/brain wo con Stat 11/19/19 18:45 Urinalysis and Microscopic Stat 11/19/19 19:19 Blood Culture Stat Lactate (Lactic Acid) Stat 11/19/19 20:04 GI Panel (Film Array) Stat Sodium Chloride (Normal Saline 0.9%) 1,000 mls @ 150 mls/hr IV CONT ZAIN Discontinued Medications Hydrocodone Bitart/Acetaminophen ([place] 5/325) 1 tab PO NOW ONE Stop: 11/19/19 19:49 Last Admin: 11/19/19 19:56 Dose: 1 tab Documented by: ROSSY Aspirin (Aspirin Chew) 324 mg PO NOW ONE Stop: 11/19/19 18:27 Last Admin: 11/19/19 18:38 Dose: 324 mg Documented by: YASMANI Sodium Chloride (Normal Saline 0.9%) 1,000 mls @ 1,000 mls/hr IV BOLUS ONE Stop: 11/19/19 19:25 Last Admin: 11/19/19 18:38 Dose: 1,000 mls/hr Documented by: YASMANI Ceftriaxone Sodium 2,000 mg/ (Dextrose) 50 mls @ 100 mls/hr IV NOW ONE Stop: 11/19/19 18:46 Last Admin: 11/19/19 19:29 Dose: Not Given Documented by: ROSSY Azithromycin 500 mg/ Dextrose 250 mls @ 250 mls/hr IV NOW ONE Stop: 11/19/19 18:46 Last Admin: 11/19/19 19:55 Dose: 250 mls/hr Documented by: ROSSY Ceftriaxone Sodium/Dextrose (Rocephin) 2 gm in 50 mls @ 100 mls/hr IV NOW ONE Stop: 11/19/19 19:32 Last Infusion: 11/19/19 19:54 Dose: 0 mls/hr Documented by: Admin: 11/19/19 19:16 Dose: 100 mls/hr Documented by: YASMANI Vital Signs Vital signs: Vital Signs - 8 hr 11/19/19 18:00 11/19/19 19:30 Temperature 97.9 F Pulse Rate 55 L 57 L Respiratory Rate 14 15 Blood Pressure 119/57 L Blood Pressure [Left Arm] 136/64 Pulse Oximetry 100 97 Medical Decision Making Medical Records Medical records reviewed: Yes I reviewed the patient's medical records. Lab Data Lab results reviewed: Yes I reviewed the patient's lab results. Result diagrams: 11/19/19 18:06 11/19/19 18:06 Labs: Lab Results 11/19/19 11/19/19 11/19/19 Range/Units 18:06 18:06 18:06 WBC 16.7 H (4.5-11.0) X10^3/uL RBC 4.17 L (4.5-5.9) X10^6/uL Hgb 13.4 L (13.5-17.5) g/dL Hct 38.9 L (41-53) % MCV 93.4 (80-100) fL MCH 32.2 (26-34) PG MCHC 34.5 (30-36) % RDW 12.9 (11.6-14.8) % Plt Count 224 (150-400) X10^3/uL Neut % (Auto) 86.2 H (50-75) % Lymph % (Auto) 4.3 L (25-40) % [place] % (Auto) 7.8 (3-14) % Eos % (Auto) 1.2 L (2-4) % Baso % (Auto) 0.5 (0-2) % Neut # (Auto) 62835 H (5442-0902) /uL Lymph # (Auto) 700 L (8960-7782) /uL [place] # (Auto) 1300 H (0-900) /uL Eos # (Auto) 200 (0-450) /uL Baso # (Auto) 100 (0-100) /uL PT 13.4 H (10.1-12.7) SECONDS INR 1.2 (0.9-1.3) APTT 28 (26.4-36.2) SECONDS Sodium 135 L (137-145) mmol/L Potassium 3.5 (3.4-5.1) mmol/L Chloride 98 (98-107) mmol/L Carbon Dioxide 25 (22-32) mmol/L BUN 23 H (9-20) mg/dL Creatinine 1.00 (0.66-1.25) mg/dL Estimated GFR > 60.0 (>60) mL/min BUN/Creatinine Ratio 23.0 H (6-22) Glucose 219 H (80-110) mg/dL Lactate (0.7-2.1) mmol/L Calcium 9.0 (8.4-10.2) mg/dL Total Bilirubin 1.0 (0.2-1.3) mg/dL AST 31 (17-59) IU/L ALT 18 (<50) IU/L Alkaline Phosphatase 94 (38-126) U/L Total Creatine Kinase 350 H (55-170) U/L CK-MB (CK-2) 0.94 (<2.37) ng/mL CK-MB (CK-2) Rel Index 0.3 L (1.5-5.0) % Troponin I < 0.012 (0.01-0.034) ng/mL Total Protein 7.6 (6.3-8.2) g/dL Albumin 4.3 (3.5-5.0) g/dL Globulin 3.3 (1.7-4.1) g/dL Albumin/Globulin Ratio 1.3 (1.0-2.8) Lipase 104 (23-300) U/L 11/19/19 Range/Units 19:19 WBC (4.5-11.0) X10^3/uL RBC (4.5-5.9) X10^6/uL Hgb (13.5-17.5) g/dL Hct (41-53) % MCV (80-100) fL MCH (26-34) PG MCHC (30-36) % RDW (11.6-14.8) % Plt Count (150-400) X10^3/uL Neut % (Auto) (50-75) % Lymph % (Auto) (25-40) % [place] % (Auto) (3-14) % Eos % (Auto) (2-4) % Baso % (Auto) (0-2) % Neut # (Auto) (0214-3935) /uL Lymph # (Auto) (5278-3965) /uL [place] # (Auto) (0-900) /uL Eos # (Auto) (0-450) /uL Baso # (Auto) (0-100) /uL PT (10.1-12.7) SECONDS INR (0.9-1.3) APTT (26.4-36.2) SECONDS Sodium (137-145) mmol/L Potassium (3.4-5.1) mmol/L Chloride (98-107) mmol/L Carbon Dioxide (22-32) mmol/L BUN (9-20) mg/dL Creatinine (0.66-1.25) mg/dL Estimated GFR (>60) mL/min BUN/Creatinine Ratio (6-22) Glucose (80-110) mg/dL Lactate 1.5 (0.7-2.1) mmol/L Calcium (8.4-10.2) mg/dL Total Bilirubin (0.2-1.3) mg/dL AST (17-59) IU/L ALT (<50) IU/L Alkaline Phosphatase (38-126) U/L Total Creatine Kinase (55-170) U/L CK-MB (CK-2) (<2.37) ng/mL CK-MB (CK-2) Rel Index (1.5-5.0) % Troponin I (0.01-0.034) ng/mL Total Protein (6.3-8.2) g/dL Albumin (3.5-5.0) g/dL Globulin (1.7-4.1) g/dL Albumin/Globulin Ratio (1.0-2.8) Lipase (23-300) U/L Imaging Data CT scan - head: Radiologist's Impression: IMPRESSION: No acute intracranial process. Dictated by: Jorje Calvert M.D. on 11/19/2019 at 19:02 CT C-spine: Radiologist's Impression: IMPRESSION: No definite acute fracture or malalignment Diffuse osteopenia which limits study sensitivity Diffuse spondylosis and facet arthropathy Bilateral carotid atherosclerosis. Dictated by: Jorje Calvert M.D. on 11/19/2019 at 19:03 Chest x-ray: Attestation: I personally reviewed and interpreted this imaging study as follows: My Impression: Developing right lower lobe infiltrate Radiologist's Impression: IMPRESSION: No acute disease Dictated by: Jorje Calvert M.D. on 11/19/2019 at 18:50 ECG Data Attestation: I personally reviewed and interpreted this ECG as follows: Interpretation: Sinus Jay at a rate of 54 normal axis flattened T-waves the 3 through V6 with no ST elevation MDM Narrative Medical decision making narrative: 78-year-old gentleman with syncopal episode and increasing weakness, slight cough over the last few days. Leukocytosis with left shift and chest x-ray concerning for developing right-sided pneumonia. He has had mild diarrhea but is not showing significant signs of dehydration. Would like to admit him overnight for -treatment of presumed community-acquired pneumonia, ceftriaxone and azithromycin a been started in the emergency department. There is no evidence of significant hypoxia nor sepsis. -Syncopal episode with loss of consciousness, complete the cardiac workup -BUN and creatinine do not suggest significant dehydration however will continue hydration after the recent diarrheal episodes -urine is currently pending -stool PCR panel has been ordered if he does have recurrent diarrhea 7:40 pm Enrike WARNER: accepts to hospitalist service Discharge Plan Departure Patient Disposition: Admitted As Inpatient Clinical Impression: Syncope Qualifiers: Syncope type: unspecified Qualified Code(s): R55 - Syncope and collapse Leukocytosis Qualifiers: Leukocytosis type: other Qualified Code(s): D72.828 - Other elevated white blood cell count Pneumonia Qualifiers: Pneumonia type: due to unspecified organism Laterality: right Lung location: lower lobe of lung Qualified Code(s): J18.9 - Pneumonia, unspecified organism Admit Date/Time: 11/19/19 20:22 Admit Provider: Camryn Calvert
[2019-11-19 18:36] LABS: INR 1.2 (0.9-1.3); Prothrombin Time 13.4 SECONDS (10.1-12.7)
[2019-11-19 18:38] LABS: Troponin I < 0.012 ng/mL (0.01-0.034)
[2019-11-19] MEDS: ASPIRIN 81 MG CHEW TAB 324 MG PO (18:38)
[2019-11-19] MEDS: SODIUM CHLORIDE 0.9% 1,000 ML 1000 ML IV (18:38)
[2019-11-19 18:41] LABS: CKMB % Relative Index 0.3 % (1.5-5.0); Creatine Kinase MB 0.94 ng/mL (<2.37)
[2019-11-19] MEDS: CEFTRIAXONE 2 GM/50 ML FROZ.PIGGY IV (19:16)
[2019-11-19 19:30] VITALS: BP 136/64; PULSE 57; RESP 15; O2SAT 97
[2019-11-19] MEDS: AZITHROMYCIN 500 MG in DEXTROSE 5% IN WATER 250 ML IV (19:55)
[2019-11-19] MEDS: HYDROCODONE/ACET 5/325 TABLET 1 TAB PO (19:56)
[2019-11-19 20:12] LABS: Lactate (Lactic Acid) 1.5 mmol/L (0.7-2.1)
[2019-11-19 20:42] LABS: Procalcitonin < 0.05 ng/mL (<0.5)
[2019-11-19 20:45] VITALS: BP 136/62; PULSE 52; RESP 23; O2SAT 96
--- NOTE | 2019-11-19 20:56 | DI.ECHO.S_ITS ---
[facility]---------+ [facility] +---------+ : : [address] : [place] : : : : [id number] : : : : Phone: [phone]+ Echocardiogram Report + + :Name: STEVE ADAN Study Date: 11/20/2019 Height: 73 in : :[facility] Exam Location: [facility] Weight: 186 lb : : Gender: Male BSA: 2.1 m2 : :: 1940 Age: 78 yrs BP: 140/69 mmHg: :Reason For Study: Syncopal episode : :Ordering Physician: Alena : :Hospitalist Performed By: Vandana Schmitt : :Referring: DAT RODRIGUEZ : + + Interpretation Summary The left ventricle is normal in size. Left ventricular systolic function is normal without focal wall motion abnormalities. The ejection fraction is estimated to be 60-65%. There has been no significant change since the previous study. Diastolic parameters suggest probable normal left ventricular diastolic function and normal filling pressures. The right ventricle is mildly dilated. The right ventricular systolic function is normal. The right ventricular systolic pressure is estimated to be at least 23 mmHg based on an estimated right atrial pressure of 3 mm Hg. The left atrium is mildly dilated. Borderline right atrial enlargement. There is mild to moderate mitral regurgitation. This is unchanged compared to the previous study. There is no other significant valvular heart disease. Procedure: A two-dimensional transthoracic echocardiogram with color flow and Doppler was performed. The study quality was technically adequate. Comparison is made with the echocardiogram of 11/22/2018. The patient was in normal sinus rhythm during the exam. Left Ventricle: The left ventricle is normal in size. Left ventricular wall thickness is borderline increased. Left ventricular systolic function is normal without focal wall motion abnormalities. The ejection fraction is estimated to be 60-65%. There has been no significant change since the previous study. Diastolic parameters suggest probable normal left ventricular diastolic function and normal filling pressures. Right Ventricle: The right ventricle is mildly dilated. The right ventricular systolic function is normal. Atria: The left atrium is mildly dilated. Borderline right atrial enlargement. The interatrial septum is intact with no evidence for an atrial septal defect. Mitral Valve: There is mild mitral annular calcification. The mitral valve is normal in structure but abnormal in function. There is mild to moderate mitral regurgitation. This is unchanged compared to the previous study. Aortic Valve: The aortic valve is trileaflet. The aortic valve opens well. No aortic regurgitation is present. Tricuspid Valve: The tricuspid valve is normal in structure and function. There is mild tricuspid regurgitation. The right ventricular systolic pressure is estimated to be at least 23 mmHg based on an estimated right atrial pressure of 3 mm Hg. Pulmonic Valve: The pulmonic valve is not well seen, but is grossly normal. There is a trace or physiologic amount of pulmonic regurgitation. There is no other significant valvular heart disease. Great Vessels: The ascending aorta could not be visualized. The IVC is of normal diameter and collapses greater than 50% with a sniff. This suggests a low right atrial pressure of 3 mm Hg. Pericardium/ Pleura There is an anterior echo-free space consistent with a fat pad. There is no pericardial effusion. There is no pleural effusion. MMode/2D Measurements & Calculations LVIDd: 5.1 cm LVOT diam: 2.0 cm LVIDs: 3.1 cm FS: 39.8 % IVSd: 1.2 cm LVPWd: 0.99 cm LV castro. diameter/BSA (cm/m^2): 2.4 LV sys. diameter/BSA (cm/m^2): 1.5 LA A2 area: 22.9 cm2 RA long axis: 4.1 cm LA A4 area: 19.0 cm2 RA area: 15.0 cm2 LA length (vol): 5.7 cm RA vol: 46.1 ml LA vol: 64.7 ml RA : 22.1 ml/m2 LA vol index: 31.0 ml/m2 TAPSE: 3.0 cm Doppler Measurements & Calculations Ao V2 max: 118.9 cm/sec LVOT Max Harinder: 77.2 cm/sec Ao V2 mean: 84.6 cm/sec LV V1 max P.4 mmHg Ao max P.7 mmHg LV V1 VTI: 15.1 cm Ao mean P.1 mmHg MASTER(I,D): 1.8 cm2 Ao V2 VTI: 24.9 cm MASTER(V,D): 1.9 cm2 sev ratio: 0.61 MASTER indexed to BSA (cm^2/m^2): 0.87 MV E max harinder: 68.2 cm/sec TR max harinder: 226.0 cm/sec MV A max harinder: 63.5 cm/sec TR max P.4 mmHg MV E/A: 1.1 PA V2 max: 57.4 cm/sec Med Peak E' Harinder: 6.3 cm/sec PA V2 mean: 39.4 cm/sec E/E' med: 10.8 PA mean P.68 mmHg Lat Peak E' Harinder: 9.6 cm/sec PA pr(Accel): 16.6 mmHg E/E' lat: 7.1 E/e' average: 9.0 MV dec time: 0.17 sec SV(LVOT): 45.2 ml Reading Physician:04:15 PM
[2019-11-19 21:00] VITALS: BP 104/54; PULSE 53; RESP 16; TEMP 37; O2SAT 94
[2019-11-19 21:07] VITALS: BMI 24.5
--- NOTE | 2019-11-19 21:20 | P.HP_ITS ---
History of Present Illness History of Present Illness Date Patient Seen: 11/19/19 Time Patient Seen: 20:00 Chief complaint: Diarrhea, also had a fall at home Narrative: Quoc Tavares is a 78-year-old male with a history of coronary artery disease and hyperlipidemia, and a history of a pulmonary embolism, was in his usual state of health at home when he was ambulating to the area between the kitchen and laundry room when he fell. was in another part of the house, heard him fall, thought he was actually on his way out to his truck. She did find him down on the floor. Patient does not recall what happened. He does complaining of having neck and back pain due to the fall. Patient has a history of what appears to have been a prior ND, underwent stress testing, and eventually had a cardiac catheterization at [facility] in [place] with placement of 2 stents. He though denies ever had a heart attack. His commodity analyst is Dr. Morelos and the patient's states that they have been ?tweaking ?his blood pressure medications, and requesting that he adjust his doses. Patient History Medical History H/O myocardial perfusion scan (Acute) Hyperlipidemia (Acute) Hypertension (Acute) Pulmonary embolism (Acute) Surgical History H/O cardiac catheterization (Acute) H/O heart artery stent (Acute) History of hip surgery (Acute) Family & Social History Family History Brother Colon cancer Father Colon cancer Mother Family history of breast cancer in female Social History: household members spouse Safety & Behavioral: Feels Safe in Current Yes Environment Been Physically Hurt or No Threatened By a Person Tobacco & Substance use: Smoking Status Never smoker alcohol intake frequency a few times a week Substance Use Type does not use Meds Home Medications and Allergies Home Medications Medication Instructions Recorded Confirmed Type aspirin 162.5 mg PO DAILY #0 08/19/11 11/19/19 History amlodipine 10 mg PO DAILY 11/19/19 11/19/19 History atorvastatin 80 mg PO DAILY 11/19/19 11/19/19 History carvedilol 6.25 mg PO BID 11/19/19 11/19/19 History chlorthalidone 25 mg PO DAILY 11/19/19 11/19/19 History hydralazine 50 mg PO BID 11/19/19 11/19/19 History isosorbide mononitrate 30 mg PO BID 11/19/19 11/19/19 History losartan 50 mg PO BID 11/19/19 11/19/19 History Allergies Allergy/AdvReac Type Severity Reaction Status Date / Time lisinopril [LISINOPRIL] AdvReac Mild COUGH Verified 11/19/19 18:10 Review of Systems Review of Systems Narrative: He denies fever, denies visual changes or headache, he denies having a sore throat but does endorse having a cough, he has had a couple of days of a runny nose, he stated that he did vomit once, and has had 1 bout of diarrhea today and he 2 episodes a couple days ago. He does have lower calf pain and itching that he has had over the last couple years. Exam Vital Signs (past 8 hours): - 11/19/19 18:00 11/19/19 19:30 11/19/19 20:45 Temperature 97.9 F Pulse Rate 55 L 57 L 52 L Respiratory Rate 14 15 23 Blood Pressure 119/57 L Blood Pressure [Left Arm] 136/64 136/62 Pulse Oximetry 100 97 96 11/19/19 21:00 Temperature 98.6 F Pulse Rate 53 L Respiratory Rate 16 Blood Pressure 104/54 L Blood Pressure [Left Arm] Pulse Oximetry 94 Oxygen Delivery Method Room Air Oxygen Flow Rate 0 Narrative Exam Narrative: Gen: Alert, oriented, well-developed 78 y.o. male, is quite lethargic HEENT: normocephalic, atraumatic, conjunctiva clear, sclera non-icteric, oral mucosa pink and moist Neck: supple, full ROM Resp: Lungs CTA, non-labored breathing CV: RRR, no murmur or rubs Abd: soft, non-tender, normoactive BTs Skin: Excoriated superficial small lesions on bilateral lower extremities, no petechiae or bruising Neuro: Alert and oriented X 4 w/no focal deficits Extremities: moves all 4 extremities, is ambulatory, negative Anneliese?s sign Psyche: normal mood and affect. Objective Labs Result Diagrams: 11/19/19 18:06 11/19/19 18:06 Labs: Laboratory Results - last 24 hr 11/19/19 11/19/19 11/19/19 18:06 18:06 18:06 WBC 16.7 H RBC 4.17 L Hgb 13.4 L Hct 38.9 L MCV 93.4 MCH 32.2 MCHC 34.5 RDW 12.9 Plt Count 224 Neut % (Auto) 86.2 H Lymph % (Auto) 4.3 L [place] % (Auto) 7.8 Eos % (Auto) 1.2 L Baso % (Auto) 0.5 Neut # (Auto) 13557 H Lymph # (Auto) 700 L [place] # (Auto) 1300 H Eos # (Auto) 200 Baso # (Auto) 100 PT 13.4 H INR 1.2 APTT 28 Sodium 135 L Potassium 3.5 Chloride 98 Carbon Dioxide 25 BUN 23 H Creatinine 1.00 Estimated GFR > 60.0 BUN/Creatinine Ratio 23.0 H Glucose 219 H Lactate Calcium 9.0 Total Bilirubin 1.0 AST 31 ALT 18 Alkaline Phosphatase 94 Total Creatine Kinase 350 H CK-MB (CK-2) 0.94 CK-MB (CK-2) Rel Index 0.3 L Troponin I < 0.012 Total Protein 7.6 Albumin 4.3 Globulin 3.3 Albumin/Globulin Ratio 1.3 Lipase 104 Procalcitonin 11/19/19 11/19/19 18:06 19:19 WBC RBC Hgb Hct MCV MCH MCHC RDW Plt Count Neut % (Auto) Lymph % (Auto) [place] % (Auto) Eos % (Auto) Baso % (Auto) Neut # (Auto) Lymph # (Auto) [place] # (Auto) Eos # (Auto) Baso # (Auto) PT INR APTT Sodium Potassium Chloride Carbon Dioxide BUN Creatinine Estimated GFR BUN/Creatinine Ratio Glucose Lactate 1.5 Calcium Total Bilirubin AST ALT Alkaline Phosphatase Total Creatine Kinase CK-MB (CK-2) CK-MB (CK-2) Rel Index Troponin I Total Protein Albumin Globulin Albumin/Globulin Ratio Lipase Procalcitonin < 0.05 Assessment & Plan Assessment & Plan narrative: Quoc Tavares is a 78-year-old male who will be placed in observation for a syncopal episode an questionable pneumonia. 1. Syncopal episode, acute, present on admission * Patient will undergo an echocardiogram tomorrow * Telemetry 2. Shortness of breath believed to be pneumonia, acute comma, present on admission * First procalcitonin was negative * Patient received 1st dose of ceftriaxone and azithromycin in the ED * If procalcitonin is negative in the morning will likely discontinue antibiotics * Respiratory viral panel, strep urine, Legionella urine, an influenza swab have been ordered and are pending. 3. Elevated glucose without diagnosis of diabetes, present on admission * Hemoglobin A1c as an add on to his current labs 4. Hypertension, acute, present on admission * Patient was initially hypotensive in the ED and again on the floor with a current blood pressure of 104/54 * Patient is normally on multiple blood pressure medications, they will be held as long as his blood pressure remains low 5. CAD, chronic * Patient is taking the following home medications including carvedilol 6.25 mg p.o. b.i.d., chlorthalidone 25 mg p.o. daily, amlodipine 10 mg p.o. daily, hydralazine 50 mg p.o. b.i.d., isosorbide mononitrate extended release 30 mg p.o. b.i.d. and losartan 50 mg p.o. b.i.d.. * I have only continue the carvedilol, and isosorbide mononitrate to be resumed in the morning if his blood pressure can support it * Request records from [facility] cardiology, his commodity analyst is Dr. Morelos . Hyperlipidemia, chronic * Continue home dose of atorvastatin 80 mg p.o. at bedtime FEN: Normal saline at 125 mL/hour, low-sodium diet, chemistries in the am Patient is placed into observation as his is not likely to exceed 2 midnights. VTE Prophylaxis: Enoxaparin 40 mg subcu daily Medications reconciled: Yes Disposition: Unknown at this time Code Status: Full code Quality VTE Deep Vein Thrombosis/Pulmonary Embolism Present on Admission: No
--- NOTE | 2019-11-19 21:44 | PC.ADMIT ---
Admission Note: Alert/oriented. Denies pain, was given [place] in ER. Spouse and son present at bedside for admission. RA 93%. Oriented to room and call light. Bed alarm on/high fall risk. Spouse took home wallet. The patient,Quoc Tavares,78 y/o, was given written information regarding hospital policies, unit procedures and contact persons. Patient's smoking status: Never smoker. Vital Signs - 8 hr 11/19/19 18:00 11/19/19 19:30 11/19/19 20:45 Temperature 97.9 F Pulse Rate 55 L 57 L 52 L Respiratory Rate 14 15 23 Blood Pressure 119/57 L Blood Pressure [Left Arm] 136/64 136/62 Pulse Oximetry 100 97 96 11/19/19 21:00 Temperature 98.6 F Pulse Rate 53 L Respiratory Rate 16 Blood Pressure 104/54 L Blood Pressure [Left Arm] Pulse Oximetry 94
[2019-11-19] MEDS: SODIUM CHLORIDE 0.9% 1,000 ML 150 ML IV (22:30)
[2019-11-19 23:00] VITALS: BP 101/49; PULSE 49; RESP 16; TEMP 36.5; O2SAT 93
[2019-11-19 23:14] LABS: Adenovirus Not Detected (Not Detect); Bordetella pertussis Not Detected (Not Detect); Chlamydophila pneumoniae Not Detected (Not Detect); Coronavirus 229E Not Detected (Not Detect); Coronavirus HKU1 Not Detected (Not Detect); Coronavirus NL 63 Not Detected (Not Detect); Coronavirus OC43 Not Detected (Not Detect); Human Metapneumovirus Not Detected (Not Detect); Human Rhinovirus/Enterovirus Not Detected (Not Detect); Influenza A Detected (Not Detect); Influenza B Not Detected (Not Detect); Mycoplasma pneumoniae Not Detected (Not Detect); Parainfluenza Virus 1 Not Detected (Not Detect); Parainfluenza Virus 2 Not Detected (Not Detect); Parainfluenza Virus 3 Not Detected (Not Detect); Parainfluenza Virus 4 Not Detected (Not Detect); Respiratory Syncytial Virus Not Detected (Not Detect)
--- NOTE | 2019-11-19 23:35 | PC.NURSE ---
Admission Note: Pt admitted from ER s/p fall at home and c-xray concerning for developing pneumonia. Pt with flu swab sent and positive for influenza A. Pt arrives on RA, SPO2 96%. Denies SOB, denies productive cough. Pt with fluid bolus from ER running in R AC. Pt otherwise with no complaints. Denies CP, denies nausea, SOB or other discomfort. Pt with scabs and excoriation on BLE from longstanding rash, (followed by wound physician). No other wounds or bruising from fall noted on admission. Pt now resting in bed. Will notify MD with changes.
[2019-11-19] MEDS: ONDANSETRON 4 MG/2 ML INJ IV (23:53)
[2019-11-20] VITALS (9 sets, daily range): BP systolic 109–143; BP diastolic 56–75; PULSE 55–68; RESP 16–18; TEMP 36.7–37.8; O2SAT 92–95
[2019-11-20 00:03] LABS: Lactate (Lactic Acid) 0.8 mmol/L (0.7-2.1)
[2019-11-20] MEDS: OSELTAMIVIR 75 MG CAPSULE PO ×3 (01:17→20:26)
[2019-11-20] MEDS: ACETAMINOPHEN 325 MG TABLET 650 MG PO (04:55)
[2019-11-20] MEDS: ONDANSETRON 4 MG/2 ML INJ IV (05:46)
[2019-11-20] MEDS: SODIUM CHLORIDE 0.9% 1,000 ML 125 ML IV (05:47)
[2019-11-20 06:01] LABS: Add Manual Diff / Slide Review NO; Basophils Absolute Auto 0 /uL (0-100); Basophils Percent Auto 0.4 % (0-2); Eosinophils Absolute Auto 100 /uL (0-450); Eosinophils Percent Auto 1.2 % (2-4); Hematocrit 34.8 % (41-53); Hemoglobin 12.1 g/dL (13.5-17.5); Lymphocytes Absolute Auto 800 /uL (1100-4500); Lymphocytes Percent Auto 9.8 % (25-40); Mean Corpuscular HGB Conc 34.7 % (30-36); Mean Corpuscular Hemoglobin 32.4 PG (26-34); Mean Corpuscular Volume 93.6 fL (80-100); Monocytes Absolute Auto 1000 /uL (0-900); Monocytes Percent Auto 11.7 % (3-14); Neutrophils Absolute Auto 6300 /uL (1500-7000); Neutrophils Percent Auto 76.9 % (50-75); Platelet Count 193 X10^3/uL (150-400); Red Blood Cell Count 3.72 X10^6/uL (4.5-5.9); Red Cell Distribution Width 13.1 % (11.6-14.8); White Blood Cell Count 8.2 X10^3/uL (4.5-11.0)
[2019-11-20 06:13] LABS: BUN Creatinine Ratio 25.6 (6-22); Blood Urea Nitrogen 23 mg/dL (9-20); Carbon Dioxide 25 mmol/L (22-32); Chloride 100 mmol/L (98-107); Estimated Glomerular Filt Rate > 60.0 mL/min (>60); Glucose 97 mg/dL (80-110); HEMOLYSIS < 15 (0-50); Potassium 3.1 mmol/L (3.4-5.1); Sodium 135 mmol/L (137-145)
[2019-11-20 06:30] LABS: Procalcitonin 0.71 ng/mL (<0.5)
[2019-11-20 06:52] LABS: Bacteria Urine None Seen
[2019-11-20 06:56] LABS: Appearance Urine UA CLEAR; Bilirubin Urine UA NEGATIVE (NEGATIVE); Color Urine UA YELLOW; Glucose Urine UA NEGATIVE (Negative); Ketones Urine UA NEGATIVE (NEGATIVE); Leukocyte Esterase Urine UA NEGATIVE (NEGATIVE); Nitrite Urine UA NEGATIVE (Negative); Occult Blood Urine UA TRACE-LYSED (Negative); Protein Urine UA TRACE (Negative); Specific Gravity Urine UA 1.025 (1.000-1.035); Urobilinogen Urine UA 0.2 E.U./dL (0.2)
[2019-11-20 07:08] LABS: Culture Indicated Urine Cult Not Indicated; Hyaline Casts Urine 1-5/LPF; Mucus Urine 1+ (Negative); RBC Urine 0-1/HPF (0-5/HPF); Squamous Epithelial Cell Urine 1-5 /HPF (0-5/HPF); WBC Urine 0-1/HPF (0-5/HPF)
--- NOTE | 2019-11-20 07:30 | PM.PN.1 ---
Subjective Subjective Date Patient Seen: 11/20/19 Interval history: Quoc Tavares is a 78-year-old male with a past medical history significant for CAD status post stenting x2, hypertension, hyperlipidemia, pulmonary embolism who presented to the ED after syncopal episode with subsequent fall and watery diarrhea times 4-5 days. The patient is resting in bed comfortably. He endorses midthoracic back pain since his fall. He reports that his cough is improving but that at times it has been very uncomfortable to cough due to back pain. He has no obvious contusions of cervical or thoracic spine. He has no other complaints and denies headache, lightheadedness or dizziness, shortness of breath, chest pain, abdominal pain, nausea, vomiting, fever, chills, dysuria, diarrhea or constipation. He is voiding without difficulty. He has had no recurrence of diarrhea and GI stool panel has been canceled. He is up ambulating with minimal assistance. Exam Vital Signs (past 8 hours): - 11/20/19 05:57 Temperature 98.3 F Pulse Rate 56 L Respiratory Rate 16 Blood Pressure 114/62 Pulse Oximetry 92 Oxygen Delivery Method Room Air Oxygen Flow Rate 0 Narrative Exam Narrative: General: Elderly gentleman lying in bed and in no acute distress, well-developed, well-nourished, appropriately interactive. HEENT: Normocephalic, atraumatic. External ears without defect. Pupils equal, round, and reactive to light and accommodation. Anicteric sclerae, moist conjunctivae, and no lid lag. Oropharynx free of erythema and cobble stoning with moist mucosa. Neck: Supple with full range of motion. No jugular venous distension. No lymphadenopathy or thyromegaly. Cardiovascular: Regular rhythm, mildly bradycardic, without murmurs, rubs, or gallops appreciated. Pulmonary: Diminished throughout but clear to auscultation bilaterally with occasional scattered rhonchi. No crackles or wheeze. Normal respiratory effort with no use of accessory muscles. Abdomen: Soft, bowel sounds present, nontender, nondistended. No hepatosplenomegaly or masses appreciated. Extremities: No clubbing, cyanosis, or edema. Skin: Normal temperature, turgor, and texture; no rash, ulcers, or subcutaneous nodules appreciated. Neurological: Cranial nerves grossly intact. Psychiatric: Normal mood and affect. Alert and oriented to person, place, and time. Objective Labs Result Diagrams: 11/20/19 05:25 11/20/19 05:25 Labs: Laboratory Results - last 24 hr 11/19/19 11/19/19 11/19/19 18:06 18:06 18:06 WBC 16.7 H RBC 4.17 L Hgb 13.4 L Hct 38.9 L MCV 93.4 MCH 32.2 MCHC 34.5 RDW 12.9 Plt Count 224 Neut % (Auto) 86.2 H Lymph % (Auto) 4.3 L Hemphill % (Auto) 7.8 Eos % (Auto) 1.2 L Baso % (Auto) 0.5 Neut # (Auto) 84225 H Lymph # (Auto) 700 L Hemphill # (Auto) 1300 H Eos # (Auto) 200 Baso # (Auto) 100 PT 13.4 H INR 1.2 APTT 28 Sodium 135 L Potassium 3.5 Chloride 98 Carbon Dioxide 25 BUN 23 H Creatinine 1.00 Estimated GFR > 60.0 BUN/Creatinine Ratio 23.0 H Glucose 219 H Hemoglobin A1c Lactate Calcium 9.0 Total Bilirubin 1.0 AST 31 ALT 18 Alkaline Phosphatase 94 Total Creatine Kinase 350 H CK-MB (CK-2) 0.94 CK-MB (CK-2) Rel Index 0.3 L Troponin I < 0.012 Total Protein 7.6 Albumin 4.3 Globulin 3.3 Albumin/Globulin Ratio 1.3 Lipase 104 Procalcitonin Urine Color Urine Appearance Urine pH Ur Specific Willits Urine Protein Urine Glucose (UA) Urine Ketones Urine Occult Blood Urine Nitrate Urine Bilirubin Urine Urobilinogen Ur Leukocyte Esterase Urine RBC Urine WBC Ur Squamous Epith Cells Urine Bacteria Hyaline Casts Urine Mucus Ur Culture Indicated? Chlamy pneumoniae PCR Adenovirus (PCR) B.parapertussis DNA PCR Coronavirus OC43 (PCR) Coronavirus HKU1 (PCR) Coronavirus 229E (PCR) Coronavirus NL63 (PCR) Human Metapneumovir PCR Influenza Type A (PCR) Influenza Type B (PCR) M. pneumoniae (PCR) Parainfluenza 1 (PCR) Parainfluenza 2 (PCR) Parainfluenza 3 (PCR) Parainfluenza 4 (PCR) RSV (PCR) Entero/Rhino (PCR) 11/19/19 11/19/19 11/19/19 18:06 18:06 19:19 WBC RBC Hgb Hct MCV MCH MCHC RDW Plt Count Neut % (Auto) Lymph % (Auto) Hemphill % (Auto) Eos % (Auto) Baso % (Auto) Neut # (Auto) Lymph # (Auto) Hemphill # (Auto) Eos # (Auto) Baso # (Auto) PT INR APTT Sodium Potassium Chloride Carbon Dioxide BUN Creatinine Estimated GFR BUN/Creatinine Ratio Glucose Hemoglobin A1c 6.0 Lactate 1.5 Calcium Total Bilirubin AST ALT Alkaline Phosphatase Total Creatine Kinase CK-MB (CK-2) CK-MB (CK-2) Rel Index Troponin I Total Protein Albumin Globulin Albumin/Globulin Ratio Lipase Procalcitonin < 0.05 Urine Color Urine Appearance Urine pH Ur Specific Willits Urine Protein Urine Glucose (UA) Urine Ketones Urine Occult Blood Urine Nitrate Urine Bilirubin Urine Urobilinogen Ur Leukocyte Esterase Urine RBC Urine WBC Ur Squamous Epith Cells Urine Bacteria Hyaline Casts Urine Mucus Ur Culture Indicated? Chlamy pneumoniae PCR Adenovirus (PCR) B.parapertussis DNA PCR Coronavirus OC43 (PCR) Coronavirus HKU1 (PCR) Coronavirus 229E (PCR) Coronavirus NL63 (PCR) Human Metapneumovir PCR Influenza Type A (PCR) Influenza Type B (PCR) M. pneumoniae (PCR) Parainfluenza 1 (PCR) Parainfluenza 2 (PCR) Parainfluenza 3 (PCR) Parainfluenza 4 (PCR) RSV (PCR) Entero/Rhino (PCR) 11/19/19 11/19/19 11/20/19 21:56 23:45 05:25 WBC RBC Hgb Hct MCV MCH MCHC RDW Plt Count Neut % (Auto) Lymph % (Auto) Hemphill % (Auto) Eos % (Auto) Baso % (Auto) Neut # (Auto) Lymph # (Auto) Hemphill # (Auto) Eos # (Auto) Baso # (Auto) PT INR APTT Sodium Potassium Chloride Carbon Dioxide BUN Creatinine Estimated GFR BUN/Creatinine Ratio Glucose Hemoglobin A1c Lactate 0.8 Calcium Total Bilirubin AST ALT Alkaline Phosphatase Total Creatine Kinase CK-MB (CK-2) CK-MB (CK-2) Rel Index Troponin I Total Protein Albumin Globulin Albumin/Globulin Ratio Lipase Procalcitonin 0.71 H Urine Color Urine Appearance Urine pH Ur Specific Willits Urine Protein Urine Glucose (UA) Urine Ketones Urine Occult Blood Urine Nitrate Urine Bilirubin Urine Urobilinogen Ur Leukocyte Esterase Urine RBC Urine WBC Ur Squamous Epith Cells Urine Bacteria Hyaline Casts Urine Mucus Ur Culture Indicated? Chlamy pneumoniae PCR Not detected Adenovirus (PCR) Not detected B.parapertussis DNA PCR Not detected Coronavirus OC43 (PCR) Not detected Coronavirus HKU1 (PCR) Not detected Coronavirus 229E (PCR) Not detected Coronavirus NL63 (PCR) Not detected Human Metapneumovir PCR Not detected Influenza Type A (PCR) Detected H Influenza Type B (PCR) Not detected M. pneumoniae (PCR) Not detected Parainfluenza 1 (PCR) Not detected Parainfluenza 2 (PCR) Not detected Parainfluenza 3 (PCR) Not detected Parainfluenza 4 (PCR) Not detected RSV (PCR) Not detected Entero/Rhino (PCR) Not detected 11/20/19 11/20/19 11/20/19 05:25 05:25 06:01 WBC 8.2 D RBC 3.72 L Hgb 12.1 L Hct 34.8 L MCV 93.6 MCH 32.4 MCHC 34.7 RDW 13.1 Plt Count 193 Neut % (Auto) 76.9 H Lymph % (Auto) 9.8 L Hemphill % (Auto) 11.7 Eos % (Auto) 1.2 L Baso % (Auto) 0.4 Neut # (Auto) 6300 Lymph # (Auto) 800 L Hemphill # (Auto) 1000 H Eos # (Auto) 100 Baso # (Auto) 0 PT INR APTT Sodium 135 L Potassium 3.1 L Chloride 100 Carbon Dioxide 25 BUN 23 H Creatinine 0.90 Estimated GFR > 60.0 BUN/Creatinine Ratio 25.6 H Glucose 97 D Hemoglobin A1c Lactate Calcium 8.0 L Total Bilirubin AST ALT Alkaline Phosphatase Total Creatine Kinase CK-MB (CK-2) CK-MB (CK-2) Rel Index Troponin I Total Protein Albumin Globulin Albumin/Globulin Ratio Lipase Procalcitonin Urine Color Yellow Urine Appearance Clear Urine pH 5.0 Ur Specific Willits 1.025 Urine Protein Trace H Urine Glucose (UA) Negative Urine Ketones Negative Urine Occult Blood Trace-lysed Urine Nitrate Negative Urine Bilirubin Negative Urine Urobilinogen 0.2 Ur Leukocyte Esterase Negative Urine RBC 0-1/hpf Urine WBC 0-1/hpf Ur Squamous Epith Cells 1-5 /hpf Urine Bacteria None seen Hyaline Casts 1-5/lpf Urine Mucus 1+ H Ur Culture Indicated? Cult not indicated Chlamy pneumoniae PCR Adenovirus (PCR) B.parapertussis DNA PCR Coronavirus OC43 (PCR) Coronavirus HKU1 (PCR) Coronavirus 229E (PCR) Coronavirus NL63 (PCR) Human Metapneumovir PCR Influenza Type A (PCR) Influenza Type B (PCR) M. pneumoniae (PCR) Parainfluenza 1 (PCR) Parainfluenza 2 (PCR) Parainfluenza 3 (PCR) Parainfluenza 4 (PCR) RSV (PCR) Entero/Rhino (PCR) Assessment & Plan Assessment & Plan narrative: Quoc Tavares is a 78-year-old male with a past medical history significant for CAD status post stenting x2, hypertension, hyperlipidemia, pulmonary embolism who presented to the ED after syncopal episode with subsequent fall and watery diarrhea times 4-5 days. 1. Acute syncopal episode with ground level fall, present on admission. Active. -Patient presented after syncopal episode with ground level fall likely secondary to dehydration and orthostasis from 1-2 days of watery diarrhea, influenza A and superimposed bacterial pneumonia, and in conjunction with 5 antihypertensive medications. -Continue to monitor orthostatic blood pressures every shift. -Continue to monitor closely on telemetry. EKG demonstrated sinus bradycardia with minimal ST depression in leads V3-V4. -Ordered echocardiogram, pending. -Continued IV fluids until adequately hydrated then discontinued. -Continue tramadol 50 mg 4 times daily as needed for muscle spasms or moderate back pain and hydrocodone 5-325 mg every 6 hours as needed for severe back pain. 2. Acute diarrhea with dehydration, present on admission. Active. -Patient presented after 1-2 days of watery diarrhea likely secondary to influenza A infection. -Continued IV fluids until adequately hydrated then discontinued. -Patient has had no recurrence of diarrhea and likely related to influenza, therefore, canceled GI stool panel. 3. Acute influenza A viral pneumonia with superimposed bacterial pneumonia, present on admission. Active. -Initial WBC 16.7 and procalcitonin < 0.05. WBC trended down and normalized at 8.2. Procalcitonin trending up at 0.71 and likely peaking. Continue to monitor WBC and procalcitonin daily. -Ordered complete pneumonia workup including: Respiratory viral PCR positive for influenza A. Strep pneumoniae and Legionella urine antigens pending. Sputum culture ordered. Blood cultures x2 pending. -Continue Tamiflu 75 mg twice daily for 5 days. -Received azithromycin 500 mg IV x1 and ceftriaxone 2 g IV x1 in ED. Continue ceftriaxone 2 g IV daily and azithromycin 500 mg x 3 doses. -Continue supportive treatment with: IV fluid hydration, Mucinex 1200 mg twice daily, albuterol nebs every 2 hours while awake as needed for shortness of breath or wheezing, and Acapella. 4. Acute hypokalemia, not present on admission. Active. -Initial potassium level 3.5. Potassium level dropped to 3.1 with IV fluid hydration and diarrhea. Repleted with potassium chloride 40 mEq PO x1. Magnesium level normal at 1.6. -Continue to monitor potassium and magnesium level daily and replete as necessary. 5. CAD status post stenting x2, chronic, present on admission. Stable. -Patient denies chest pain. -EKG demonstrated sinus bradycardia with minimal ST depression in leads V3-V4. Continue to monitor closely on telemetry -Continue aspirin 162.5 mg daily, atorvastatin 80 mg daily bedtime, carvedilol 6.25 mg twice daily and isosorbide mononitrate 30 mg twice daily. -Continue to hold amlodipine 10 mg daily, chlorthalidone 25 mg daily, hydralazine 50 mg twice daily, and losartan 50 mg twice daily while blood pressure is labile. -Requested records from [facility] cardiology, his government affairs manager is Dr. Morelos. 6. Hypertension, chronic, present on admission. Stable. -Patient's blood pressure was low normal on admission. -Held amlodipine 10 mg daily, chlorthalidone 25 mg daily, hydralazine 50 mg twice daily and losartan 50 mg twice daily. While blood pressure is labile -Continue carvedilol 6.25 mg twice daily and isosorbide 30 mg twice daily. 7. Hyperlipidemia, chronic, present on admission. Stable. -Continue atorvastatin 80 mg daily at bedtime. 8. Pre-diabetes, chronic, present on admission. Active. -Hemoglobin A1c 6.0%. -Counseled patient on lifestyle modification including diet and exercise. -Continue heart healthy/carbohydrate consistent diet. Code status: Full code VTE Prophylaxis: Enoxaparin 40 mg subcu daily Disposition: Patient likely to discharge home possibly tomorrow if blood pressure has improved and viral and bacterial pneumonia has been adequately treated. Quality VTE Deep Vein Thrombosis/Pulmonary Embolism Present on Admission: No
--- NOTE | 2019-11-20 07:52 | PC.NURSE ---
bladder scanned for 486. In and cathed for 550. UA was sent to lab with void prior to bladder scan.
[2019-11-20 07:58] LABS: Magnesium 1.6 mg/dL (1.6-2.3)
[2019-11-20] MEDS: POTASSIUM CHLORIDE 40 MEQ in SODIUM CHLORIDE 0.9% 500 ML 130 ML IV (08:41)
[2019-11-20] MEDS: ISOSORBIDE MONONITRATE ER 30 MG TABLET PO ×2 (08:45→20:24)
[2019-11-20] MEDS: ENOXAPARIN 40 MG/0.4 ML SYRINGE SUBCUT (08:45)
[2019-11-20] MEDS: ASPIRIN EC 325 MG TABLET 162.5 MG PO (08:46)
[2019-11-20] MEDS: carvediloL 6.25 MG TABLET PO ×2 (08:46→16:59)
[2019-11-20] MEDS: guaiFENesin ER 600 MG TAB 1200 MG PO ×2 (08:46→20:25)
--- NOTE | 2019-11-20 09:16 | CM.DANOTE ---
DCP: Case received, EMR reviewed and met with patient. Introduced self and role. Was able to meet with patient to obtain baseline health and activity information. DCP assessment completed with information currently available. Patient is a 78 year old male who admitted yesterday evening to the care of the hospitalist team. PCP: Dr. Okeefe. Payer: confirmed: Medicare/AARP Patient came to the hospital via family vehicle due to increased weakness resulting in a fall at home. Patient had a fall between his kitchen and laundry room. He was also having increased loose stools. Met with patient in his room. He was sitting up in bed having his breakfast. Patient alert and oriented. He has history of HTN. He also has history of [place], and had 2 stents put in at [facility].He holds current diagnosis of influenza A, as well as pneumonia. Patient resides with his in [place]. 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 He is familiar with the [place] area, has lived there all of his life. He is independent at home, but does use a cane. He does have orders for P.T. as well. P: DCP to continue to follow closely. Will see how he does with P.T. team as well. Dori Sawant RN/[employer]
--- NOTE | 2019-11-20 12:00 | PT.IIE ---
Surgical History (Last Reviewed 11/19/19 @ 21:20 by ALANA Aguilar) H/O cardiac catheterization (Acute) H/O heart artery stent (Acute) History of hip surgery (Acute) Medical History (Last Reviewed 11/19/19 @ 21:20 by ALANA Aguilar) H/O myocardial perfusion scan (Acute) Hyperlipidemia (Acute) Hypertension (Acute) Pulmonary embolism (Acute) Physical Therapy Inpatient Evaluation/Re-Eval M1 PT/OT-IP Prior Functional Status Start: 11/20/19 09:38 Freq: NEEDED Status: Active Protocol: Document 11/20/19 11:54 AW (Rec: 11/20/19 13:15 AW [id number]) Medical Review Prior Functional Status Medical History Reviewed Yes Communication WNL. No known deficits Mobility and Gait Pt reports he gets around without AD. 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 Activities of Daily Living and IADL's Independent including driving. Social History Household Members spouse Living Arrangements House Number of Floors (Floors) Two Floors Number of Stairs To Enter/Railing? Level entrance. Pt states he and his live on the main level with limited need to access the second floor. Home Environment High Toilet,Walk in Shower Home Equipment Hospital Bed Employment Status Self-Employed Additional Social History Comment Pt lives in [facility] with his , Leanna. 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 He still assists as he is able on the farm. M2 PT-IP Current Condition Start: 11/20/19 09:38 Freq: NEEDED Status: Active Protocol: Document 11/20/19 11:54 AW (Rec: 11/20/19 13:15 AW [id number]) Physical Therapy Current Condition Current Condition Evaluation Date 11/20/19 Treatment Diagnosis influenza A; syncopal episode; impaired mobility and activity tolerance Precautions Other Precautions Droplet precautions due to influenza A Weight Bearing Status Weight Bearing Status Full Weight Bearing M3 PT-IP Subjective Start: 11/20/19 09:38 Freq: NEEDED Status: Active Protocol: Document 11/20/19 11:54 AW (Rec: 11/20/19 13:15 AW [id number]) Subjective Physical Therapy Visit Type Type Initial Evaluation Visit Start Time 10:48 Visit Stop Time 11:15 Total Visit Minutes 27 Notes Pt's , Leanna, present throughout evaluation. Physical Therapy Visit Comments Patient Comments I get around like I'm still 40, just a little slower. Patient Goals To return home with his and family support. Therapy Pain Assessment Pain When Pain Assessed At Rest Pain Present Pain Present Denied Pain M4 PT-IP Mobility and Gait Start: 11/20/19 09:38 Freq: NEEDED Status: Active Protocol: Document 11/20/19 11:54 AW (Rec: 11/20/19 13:15 AW [id number]) PT-Bed Mobility Assessment Supine to Sit Supine to Sit Independent Scooting Scooting to Edge of Bed Independent PT-Transfer Assessment Sit to and From Stand Sit to and from Stand Standby Assistance,1 Person Assistance,Use of Upper Extremities Equipment Transfer Assistive Device None,Gait Belt Orthotic/Prosthetic Devices or Brace: No Transfers Transfer Destination Chair Transfer Technique pt ambulated without AD Transfer Ability Level of Assist Standby Assistance Comments Mobility Comments Pt completed supine to sit transfer independent and was able to sit EOB for MMT using UE support. After gait assessment, pt transferred to the chair SBA and was positioned with call light and table within reach, visiting in room. Sitting EOB: BP 127/75, HR 68 After 2 minutes standing: BP 139/63, HR 61 After ambulation >200 feet: BP 140/69, HR 55 Gait Assessment Gait Gait Assistance Required: Standby Assistance Distance (Feet) 220 Able to Maintain Weight Bearing Status Yes During Gait Assistive Devices Assistive Device None,Gait Belt Gait Deviations General Gait Pattern Antalgic,Decreased Stride Length,Decreased Feet Clearance Factors Limiting Gait Function Factors Limiting Gait Function Decreased Activity Tolerance, Decreased Strength,Limited Range of Motion,Poor Balance Comments Gait Comments Pt ambulated ~220 feet around the nurses station without AD SBA. Gait was remarkable for poor foot clearance, flat foot falls bilaterally, and lack of terminal knee extension. Gait was unsteady but with no observable LOB. Pt denies falls other than the one related to this admission. Stair Climbing Assessment Comments Stair Climbing Comments Not assessed. Level entry at home PT-Balance Assessment Sitting Balance and Reactions Static Sitting Balance Ability Normal Dynamic Sitting Balance Ability Normal Standing Balance and Reactions Static Standing Balance Ability Good Dynamic Standing Balance Ability Fair Device Used none M5 PT-IP Objective Assessments Start: 11/20/19 09:38 Freq: NEEDED Status: Active Protocol: Document 11/20/19 11:54 AW (Rec: 11/20/19 13:15 AW [id number]) Orientation Orientation/Cognition Level of Alertness Alert Orientation Name,Day of Week,Place, Situation Language Function Ability No Deficits Noted Safety Awareness Understands Safety Issues Memory Description No Deficits Noted Gross Range of Motion Lower Extremity ROM Assessment Bilaterally Impaired Impairments Lacking terminal knee extension (5-10 degrees) Strength Lower Extremity Strength Assessment Bilaterally Impaired Comments Strength Comments Grossly 4/5 BLE Coordination Assessment Gross Coordination Gross Coordination WNL Sensation Assessment Sensation Gross Sensation WNL Comments Sensation Comments No deficits on exam Muscle Tone Muscle Tone WNL Yes M6 PT-IP Treatment Start: 11/20/19 09:38 Freq: NEEDED Status: Active Protocol: Document 11/20/19 11:54 AW (Rec: 11/20/19 13:15 AW [id number]) Physical Therapy Treatment Education Education Provided Precautions,Safety Other Treatments Other Treatment Performed Provided education on role of PT, plan of care, and recommendations related to discharge. M7 PT-IP Assessment and Plan Start: 11/20/19 09:38 Freq: NEEDED Status: Active Protocol: Document 11/20/19 11:54 AW (Rec: 11/20/19 13:15 AW [id number]) PT Summary Assessment and Plan Potential Rehabilitation Potential Excellent Status of Condition at Evaluation Evolving Summary Impairments Pain,Strength,Balance Assessment Summary Quoc is a 78 yo man admitted following a syncopal episode with gorund level fall. He swabbed positive for influenza A. He reports independence at baseline for mobility and ADL 's. He does not use an AD. 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 On evaluation, pt was globally weak in B LE (4/5), lacks 5-10 degrees knee extension, had reduced activity tolerance, and had gait deficits including lack of heel strike at initial contact, poor foot clearance, and lack of terminal knee extension. Pt will benefit from continued therapy services in the inpatient setting to address these deficits. PT recommending discharge to home with family assist once medically cleared. Goals Bed Mobility Goal Independent Transfer Goal Independent Gait Goal Independent Gait Distance 300 Days to Meet Goals 3 Frequency of Treatment Frequency Of Treatment Once a Day Treatment Plan Physical Therapy Treatment Plan Bed Mobility Training,Transfer Training,Gait Training, Therapeutic Exercise,Balance Retraining,Discharge Planning, Hot or Cold Pack,Neuromuscular Re-ed Other Recommendations and Next Treatment progress gait distance; track Focus vitals including RPE Recommendations To Nursing Amount of Assist Needed Standby Assistance Discharge Recommendations PT Discharge Recommendations Home with Assistance, Outpatient PT Transportation Needs at Discharge Private Vehicle
--- NOTE | 2019-11-20 12:07 | OT.IP.EVAL ---
Past Medical History (Last Reviewed 11/19/19 @ 21:20 by ALANA Aguilar) H/O myocardial perfusion scan (Acute) Hyperlipidemia (Acute) Hypertension (Acute) Pulmonary embolism (Acute) Surgical History (Last Reviewed 11/19/19 @ 21:20 by ALANA Aguilar) H/O cardiac catheterization (Acute) H/O heart artery stent (Acute) History of hip surgery (Acute) Occupational Therapy Inpatient Evaluation/Re-Eval M1 PT/OT-IP Prior Functional Status Start: 11/20/19 09:38 Freq: NEEDED Status: Active Protocol: Document 11/20/19 13:52 CGR (Rec: 11/20/19 14:03 CGR [email or web address]) Medical Review Prior Functional Status Medical History Reviewed Yes Communication WNL. No known deficits Mobility and Gait Pt reports he gets around without AD. 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 Activities of Daily Living and IADL's Independent including driving. Social History Household Members spouse Living Arrangements House Number of Floors (Floors) Two Floors Number of Stairs To Enter/Railing? Level entrance. Pt states he and his live on the main level with limited need to access the second floor. Home Environment High Toilet,Walk in Shower Home Equipment Hospital Bed Employment Status Self-Employed Additional Social History Comment Pt lives in [facility] with his , Leanna. He is self-employed as a realtor. He grew up on a farm in [place] [facility] which his children now manage. He still assists as he is able on the farm. M2 OT-IP Current Condition Start: 11/20/19 13:52 Freq: Status: Active Protocol: Document 11/20/19 13:52 CGR (Rec: 11/20/19 14:03 CGR [email or web address]) Occupational Therapy Current Condition Current Condition Evaluation Date 11/20/19 Treatment Diagnosis GLF and Diarrhea, Influenza Diagnosis Onset Date 11/20/19 Post Operative Precautions Other Precautions Droplet Precautions M3 OT- IP Subjective and Pain Start: 11/20/19 13:52 Freq: Status: Active Protocol: Document 11/20/19 13:52 CGR (Rec: 11/20/19 14:03 CGR [email or web address]) OT- Subjective Occupational Therapy Visit Type Type Initial Evaluation Visit Start Time 11:48 Visit Stop Time 12:07 Total Visit Minutes 19 Notes present throughout session. Occupational Therapy Visit Comments Patient Comments I can do everything on my own. OT Pain Assessment Pain When Pain Assessed At Rest Pain Present Pain Present Denied Pain M4 OT- IP ADL's Start: 11/20/19 13:52 Freq: Status: Active Protocol: Document 11/20/19 13:52 CGR (Rec: 11/20/19 14:03 CGR [email or web address]) OT MOV-Jvby-Mksjzci General Evaluation Self-Feeding Ability Independent Comments OT Self-Feeding Comments Lunch OT ADL-Grooming Comments OT Grooming Comments Pt declined to perform OT ADL-Oral Care Comments Oral Care Comments Pt declined to perform OT ADL-Dressing General Eval Lower Body Dressing Ability Independent Areas Needing Assistance Socks OT ADL-Toileting General Evaluation Toileting Ability Independent Comments OT Toileting Comments seated on toilet OT ADL-Bathing Comments OT Bathing Comments Not performed in this session. M5 OT- IP IADL's Start: 11/20/19 13:52 Freq: Status: Active Protocol: Document 11/20/19 13:52 CGR (Rec: 11/20/19 14:03 CGR [email or web address]) OT-Instrumental Activities of Daily Living Deficits IADL Deficits Identified No Deficits Home Safety Awareness Awareness of Need for Assistance at Home Good Awareness Ability to Problem Solve Emergency Able to Problem Solve Situations Medication Management Medication Management No Deficits Identified Money Management Money Management No Deficits Identified Meal Preparation Meal Preparation Caregiver Provides Assist Tree Girdler Tree Girdler Caregiver Provides Assist M6 OT- IP Functional Cognition Start: 11/20/19 13:52 Freq: Status: Active Protocol: Document 11/20/19 13:52 CGR (Rec: 11/20/19 14:03 CGR [email or web address]) Cognitive Factors Limiting Selfcare Function Cognitive Ability Level of Alertness Alert Patient Orientation Name,Age,Birthday,Month,Date, Year,Day of Week,Place, Situation Attention Span Ability Capable of Focused Attention, Capable of Sustained Attention Ability to Follow Commands Able to Follow One Step Commands Memory Description No Deficits Noted Safety Awareness No Deficits Noted OT- Vision and Hearing OT- Hearing Assessment OT- Hearing Assessment Hearing Impaired OT- Vision Assessment Visual Acuity Glasses All The Time Visual Attentiveness WFL Occular Pursuits WFL Visual Convergence WFL Visual Meyers WFL M7 OT- IP Mobility and Balance Start: 11/20/19 13:52 Freq: Status: Active Protocol: Document 11/20/19 13:52 CGR (Rec: 11/20/19 14:03 CGR [email or web address]) OT-Transfer Assessment Sit to and From Stand Sit to and from Stand Standby Assistance Transfers Transfer Ability Standby Assistance Technique Transfer Destination Chair,Toilet Transfer Technique Stand Step Pivot Devices Transfer Assistive Devices Gait Belt OT- Gait Assessment Gait Gait Assistance Required: Standby Assistance Assistive Devices Assistive Device Gait Belt Comments Gait Ability Comments Mobility around the room. OT- Balance Assessment Sitting Balance and Reactions Static Sitting Balance Ability Normal Dynamic Sitting Balance Ability Good M8 OT- IP Objective Assessments Start: 11/20/19 13:52 Freq: Status: Active Protocol: Document 11/20/19 13:52 CGR (Rec: 11/20/19 14:03 CGR [email or web address]) OT Gross Range of Motion Upper Extremity Range of Motion Assessment Within Functional Limits OT Strength Upper Extremity Strength Assessment Within Functional Limits OT- Coordination Assessment Upper Extremity Finger to Nose Test Within Functional Limits Finger Tapping Test Within Functional Limits OT-Muscle Tone Assessment Muscle Tone WNL Yes OT Sensation Assessment Comments Summary Comments No deficits Edema Edema Absent M9 OT- IP Assessment and Plan Start: 11/20/19 13:52 Freq: Status: Active Protocol: Document 11/20/19 13:52 CGR (Rec: 11/20/19 14:03 CGR [email or web address]) OT Summary Assessment and Plan Potential Rehabilitation Potential Excellent Analytic Complexity at Evaluation Low Summary OT Impairments Pain,Functional Mobility, Grooming,Dressing,Toileting, Bathing,Toilet Transfers, Shower Transfers,Activity Tolerance Progress Towards Goals Progressing Toward Goals Assessment Summary PT presents as a low complexity evalutation after havign a GLF at home. Pt may benefit from further assessment of endurance and bathing. Pt eloisa jefferson for d/c to home when medically stable. Will follow at this time for endurance and bathing. Goals Grooming Goal Independent Dressing Goal Independent Bathing Goal Independent Shower Transfer Goal Independent Days to Meet Goals 2 Frequency of Treatment Frequency Of Treatment Once a Day Treatment Plan OT Treatment Plan ADL Training,Functional Mobility,Patient/Family Education,Discharge Planning Other Treatment Recommendations and Next shower Treatment Focus Discharge Recommendations OT Discharge Recommendations Home with Assistance Transportation Needs at Discharge Private Vehicle
[2019-11-20] MEDS: IBUPROFEN 400 MG TABLET 600 MG PO (16:28)
[2019-11-20] MEDS: AZITHROMYCIN 500 MG in DEXTROSE 5% IN WATER 250 ML IV (16:32)
[2019-11-20] MEDS: BENZONATATE 100 MG CAPSULE PO (16:58)
--- NOTE | 2019-11-20 17:30 | PC.NURSE ---
Addendum entered by Radha Trinidad R.N. 11/20/19 22:27: Occasional unproductive cough. Reports pain relief with ibuprofen and refuses offers for other analgesia. Up to bathroom with standby assistance; incontinent of soft, brown stool. Urine is mostly yellow in color with multiple small flecks of blood clots. No dizziness or lightheadedness when up. Addendum entered by Radha Trinidad R.N. 11/20/19 18:17: Pt reports right arm pain resolved. States back pain improved. This is the first this television script writer has heard of back pain. GUN NUMBERER assisting pt with hs care. Original Note: Pt resting quietly in bed. Occasional unproductive cough. Orthostatic pulse and blood pressure taken as ordered. Pt denies dizziness when up. Able to void in bathroom and GUN NUMBERER reports urine is bloody as per dayshift report. Pt admits to right arm pain 5/10. Potassium rider has just infused and pt's right arm is without erythema or edema. Ibuprofen administered and will monitor. Spouse is present @ bedside and requests to speak with MD. Dr. Victoria was informed.
[2019-11-20] MEDS: CEFTRIAXONE 2 GM/50 ML FROZ.PIGGY IV (18:51)
[2019-11-20] MEDS: ATORVASTATIN 20 MG TABLET 80 MG PO (20:22)
[2019-11-20] MEDS: SODIUM CHLORIDE 0.9% FLUSH 10 ML IV (20:30)
[2019-11-21] VITALS: BP 108/40; PULSE 49; RESP 18; TEMP 36.8; O2SAT 95
[2019-11-21 05:00] VITALS: BP 116/48; PULSE 81; RESP 16; TEMP 37; O2SAT 92
[2019-11-21 05:31] LABS: Add Manual Diff / Slide Review NO; Basophils Absolute Auto 100 /uL (0-100); Basophils Percent Auto 0.8 % (0-2); Eosinophils Absolute Auto 200 /uL (0-450); Eosinophils Percent Auto 2.6 % (2-4); Hematocrit 33.9 % (41-53); Hemoglobin 11.9 g/dL (13.5-17.5); Lymphocytes Absolute Auto 1000 /uL (1100-4500); Lymphocytes Percent Auto 15.7 % (25-40); Mean Corpuscular HGB Conc 34.9 % (30-36); Mean Corpuscular Hemoglobin 32.3 PG (26-34); Mean Corpuscular Volume 92.5 fL (80-100); Monocytes Absolute Auto 800 /uL (0-900); Monocytes Percent Auto 11.6 % (3-14); Neutrophils Absolute Auto 4500 /uL (1500-7000); Neutrophils Percent Auto 69.3 % (50-75); Platelet Count 193 X10^3/uL (150-400); Red Blood Cell Count 3.67 X10^6/uL (4.5-5.9); Red Cell Distribution Width 13.2 % (11.6-14.8); White Blood Cell Count 6.5 X10^3/uL (4.5-11.0)
[2019-11-21 05:54] LABS: Blood Urea Nitrogen 21 mg/dL (9-20); Calcium 8.4 mg/dL (8.4-10.2); Carbon Dioxide 28 mmol/L (22-32); Chloride 102 mmol/L (98-107); Creatine Kinase 268 U/L (55-170); Estimated Glomerular Filt Rate > 60.0 mL/min (>60); Glucose 91 mg/dL (80-110); HEMOLYSIS < 15 (0-50); Magnesium 1.7 mg/dL (1.6-2.3); Potassium 4.1 mmol/L (3.4-5.1); Sodium 136 mmol/L (137-145)
[2019-11-21 06:08] LABS: Procalcitonin 0.64 ng/mL (<0.5)
[2019-11-21 06:56] VITALS: BP 122/69; BP 130/66; BP 137/73; PULSE 56; PULSE 66; PULSE 69
[2019-11-21 08:00] VITALS: BP 135/61; PULSE 51; RESP 18; TEMP 36.9; O2SAT 94
--- NOTE | 2019-11-21 10:04 | PM.DS.1 ---
History of Present Illness History of Present Illness Date Patient Seen: 11/21/19 Time Patient Seen: 10:05 Chief complaint: Diarrhea, also had a fall at home Narrative: As per ALANA Aguilar: Chaitanya is a 78-year-old male with a history of coronary artery disease and hyperlipidemia, and a history of a pulmonary embolism, was in his usual state of health at home when he was ambulating to the area between the kitchen and laundry room when he fell. was in another part of the house, heard him fall, thought he was actually on his way out to his truck. She did find him down on the floor. Patient does not recall what happened. He does complaining of having neck and back pain due to the fall. Patient has a history of what appears to have been a prior [place], underwent stress testing, and eventually had a cardiac catheterization at [facility] in [place] with placement of 2 stents. He though denies ever had a heart attack. His dog and cat food cook is Dr. Morelos and the patient's states that they have been ?tweaking ?his blood pressure medications, and requesting that he adjust his doses. Discharge Providers Provider Date of admission: 11/19/19 20:22 Discharge Date: 11/21/19 Primary care physician: Edis Okeefe MD Consults: 11/20/19 07:53 Consult to Occupational Therapy Evaluate & Treat Comment: Physician Instructions: Evaluate and treat Consult to Physical Therapy Evaluate & Treat Comment: Physician Instructions: Evaluate and Treat Discharge provider: Dc Reyes DO Summary Hospital Course Hospital Course: Quoc Tavares is a 78-year-old male with a past medical history significant for CAD status post stenting x2, hypertension, hyperlipidemia, pulmonary embolism who presented to the ED after syncopal episode with subsequent fall and watery diarrhea for 4-5 days prior to admission. He was admitted with influenza a, treated with Tamiflu and antibiotics for possible superimposed pneumonia. He improved symptomatic Emily and was discharged home. He will complete a course of antibiotics and Tamiflu at home. His blood pressure medications were reduced significantly, and he will need to follow-up with his primary care provider for possible re-initiation of these medications. 1. Acute syncopal episode with ground level fall, present on admission. Active. -Patient presented after syncopal episode with ground level fall likely secondary to dehydration and orthostasis from 1-2 days of watery diarrhea, influenza A and superimposed bacterial pneumonia, and in conjunction with 5 antihypertensive medications. -EKG sinus bradycardia -echocardiogram was performed, and was not significantly changed compared to previous. He has a normal EF, and normal diastolic dysfunction. -Continued IV fluids until adequately hydrated then discontinued. -Continued tramadol 50 mg 4 times daily as needed for muscle spasms or moderate back pain and hydrocodone 5-325 mg every 6 hours as needed for severe back pain while admitted 2. Acute diarrhea with dehydration, present on admission. Active. -Patient presented after 1-2 days of watery diarrhea likely secondary to influenza A infection. -Continued IV fluids until adequately hydrated then discontinued. -Patient has had no recurrence of diarrhea and likely related to influenza, therefore, canceled GI stool panel. 3. Acute influenza A viral pneumonia with superimposed bacterial pneumonia, present on admission. Active. -Initial WBC 16.7 and procalcitonin < 0.05. WBC trended down and normalized at 8.2. Procalcitonin trending up at 0.71 and peaked there. -Ordered complete pneumonia workup including: Respiratory viral PCR positive for influenza A. Strep pneumoniae and Legionella urine antigens pending. Sputum culture grew mixed sada. Blood cultures x2 are no growth currently. -Continue Tamiflu 75 mg twice daily for 5 additional days. -Received azithromycin 500 mg IV x1 and ceftriaxone 2 g IV x1 in ED. Continued ceftriaxone 2 g IV daily and azithromycin 500 mg x 3 doses while inpatient. Patient was discharged on Augmentin to complete therapy at home. -continue supportive care at home 4. Acute hypokalemia, not present on admission. Resolved. -Initial potassium level 3.5. Potassium level dropped to 3.1 with IV fluid hydration and diarrhea. Repleted with potassium chloride 40 mEq PO x1. Magnesium level normal at 1.6. Repeat la evaluation showed normal potassium. 5. CAD status post stenting x2, chronic, present on admission. Stable. -Patient denies chest pain. -EKG demonstrated sinus bradycardia with minimal ST depression in leads V3-V4. -Continue aspirin 162.5 mg daily, atorvastatin 80 mg daily bedtime, carvedilol 6.25 mg twice daily and isosorbide mononitrate 30 mg twice daily, resumed amlodipine 10 mg on the day of discharge. -Continue to hold chlorthalidone 25 mg daily, hydralazine 50 mg twice daily, and losartan 50 mg twice daily while blood pressure is labile. -patient should follow-up with his dog and cat food cook and primary care provider for re-initiation of antihypertensives. 6. Hypertension, chronic, present on admission. Stable. -Patient's blood pressure was low normal on admission. -Held chlorthalidone 25 mg daily, hydralazine 50 mg twice daily and losartan 50 mg twice daily. -Continue carvedilol 6.25 mg twice daily and isosorbide 30 mg twice daily, and resumed amlodipine on day of discharge. -patient should follow-up with his dog and cat food cook and primary care provider for re-initiation of antihypertensives. 7. Hyperlipidemia, chronic, present on admission. Stable. -Continue atorvastatin 80 mg daily at bedtime. 8. Pre-diabetes, chronic, present on admission. Active. -Hemoglobin A1c 6.0%. -Counseled patient on lifestyle modification including diet and exercise. -Continue heart healthy/carbohydrate consistent diet. Exam Vital Signs (past 8 hours): - 11/21/19 05:00 11/21/19 06:56 11/21/19 08:00 Temperature 98.6 F 98.4 F Pulse Rate 81 51 L Pulse Rate [Orthostatic Lying] 56 L Pulse Rate [Orthostatic Sitting] 69 Pulse Rate [Orthostatic Standing] 66 Respiratory Rate 16 18 Blood Pressure 116/48 L 135/61 Blood Pressure [Orthostatic Lying] 122/69 Blood Pressure [Orthostatic Sitting] 137/73 Blood Pressure [Orthostatic Standing] 130/66 Pulse Oximetry 92 94 Oxygen Delivery Method Room Air Oxygen Flow Rate 0 Narrative Exam Narrative: General: Elderly gentleman lying in bed and in no acute distress, well-developed, well-nourished, appropriately interactive. HEENT: Normocephalic, atraumatic. External ears without defect. Pupils equal, round, and reactive to light and accommodation. Anicteric sclerae, moist conjunctivae, and no lid lag. Oropharynx free of erythema and cobble stoning with moist mucosa. Neck: Supple with full range of motion. No jugular venous distension. No lymphadenopathy or thyromegaly. Cardiovascular: Regular rhythm, mildly bradycardic, without murmurs, rubs, or gallops appreciated. Pulmonary: Diminished throughout but clear to auscultation bilaterally with occasional scattered rhonchi. No crackles or wheeze. Normal respiratory effort with no use of accessory muscles. Abdomen: Soft, bowel sounds present, nontender, nondistended. No hepatosplenomegaly or masses appreciated. Extremities: No clubbing, cyanosis, or edema. Skin: Normal temperature, turgor, and texture; no rash, ulcers, or subcutaneous nodules appreciated. Neurological: Cranial nerves grossly intact. Psychiatric: Normal mood and affect. Alert and oriented to person, place, and time. Objective Labs Result Diagrams: 11/21/19 05:05 11/21/19 05:05 Labs: Laboratory Results - last 24 hr 11/21/19 11/21/19 11/21/19 05:05 05:05 05:05 WBC 6.5 RBC 3.67 L Hgb 11.9 L Hct 33.9 L MCV 92.5 MCH 32.3 MCHC 34.9 RDW 13.2 Plt Count 193 Neut % (Auto) 69.3 Lymph % (Auto) 15.7 L [place] % (Auto) 11.6 Eos % (Auto) 2.6 Baso % (Auto) 0.8 Neut # (Auto) 4500 Lymph # (Auto) 1000 L [place] # (Auto) 800 Eos # (Auto) 200 Baso # (Auto) 100 Sodium 136 L Potassium 4.1 Chloride 102 Carbon Dioxide 28 BUN 21 H Creatinine 1.00 Estimated GFR > 60.0 BUN/Creatinine Ratio 21.0 Glucose 91 Calcium 8.4 Magnesium 1.7 Total Creatine Kinase 268 H Procalcitonin 0.64 H Discharge Plan Discharge Plan Patient Disposition: Home Discharge comment: You were admitted to the hospital with flu and possible superimposed pneumonia. You improved with tamiflu and antibiotics. You are to complete a course of tamiflu at home and additionally finish a 5 day total course of antibiotics at home. Please follow up with your primary care provider for blood pressure management. A few of your blood pressure medications were held due to low blood pressures and you made to restart these at the direction of your primary care provider. Discharge orders & Medications Prescriptions: New oseltamivir 75 mg capsule 75 mg PO BID 5 Days Qty: 10 RF: 0 amoxicillin-pot clavulanate [Augmentin] 875-125 mg tablet 1 tab PO BID 3 Days Qty: 6 RF: 0 Continued aspirin 325 MG tablet,delayed release (DR/EC) 162.5 mg PO DAILY Qty: 0 RF: 0 atorvastatin 80 mg tablet 80 mg PO DAILY RF: 0 carvedilol 6.25 mg tablet 6.25 mg PO BID RF: 0 isosorbide mononitrate 30 mg tablet extended release 24 hr 30 mg PO BID RF: 0 amlodipine 10 mg tablet 10 mg PO DAILY RF: 0 Discontinued chlorthalidone 25 mg tablet 25 mg PO DAILY RF: 0 losartan 50 mg tablet 50 mg PO BID RF: 0 hydralazine 50 mg tablet 50 mg PO BID RF: 0 Follow up/Referrals: Edis Okeefe MD [Primary Care Provider] - Discharge Health Status Health Concerns: Influenza A with superimposed pneumonia possible Multidrug resistant organism: No MDRO Diet/Activity/Treatments Diet: Diet as Tolerated Activity: As tolerated Visit Report/Discharge Packet Instructions: DI for Influenza -- Adult, Oseltamivir, Amoxicillin/Clavulanate Potassium (By mouth) Visit Report Forms: Patient Portal/API, Stroke Signs & Symptoms Discharge Data Primary Care Provider: Edis Okeefe V Attending Provider: Camryn Calvert Admit Date/Time: 11/19/19 20:22 Quality VTE Deep Vein Thrombosis/Pulmonary Embolism Present on Admission: No
[2019-11-21] MEDS: ISOSORBIDE MONONITRATE ER 30 MG TABLET PO (10:11)
[2019-11-21] MEDS: ASPIRIN EC 325 MG TABLET 162.5 MG PO (10:11)
[2019-11-21] MEDS: guaiFENesin ER 600 MG TAB 1200 MG PO (10:11)
[2019-11-21] MEDS: OSELTAMIVIR 75 MG CAPSULE PO (10:11)
[2019-11-21] MEDS: ENOXAPARIN 40 MG/0.4 ML SYRINGE SUBCUT (10:11)
[2019-11-21 10:12] VITALS: PULSE 60
[2019-11-21] MEDS: carvediloL 6.25 MG TABLET PO (10:12)
[2019-11-21] MEDS: BENZONATATE 100 MG CAPSULE PO (10:12)
--- NOTE | 2019-11-21 11:13 | PT-IP ANOTE ---
Pt discharged before pt seen by PT.
--- NOTE | 2019-11-21 12:35 | PC.NURSE ---
Discharge Pt denies pain. Still c/o cough, medicated with tessalon perles. up with SBA. PIV in hand removed accidentally by pt himself this AM, AC IV removed prior to d/c. Pt states he took all belongings with him. D/c instructions provided to pt and his . Aware to call Dr Hampton and patient financial services specialist to make f/u apts and if they have any additional questions or concerns. Pt left in w/c with VISUAL DISPLAY MANAGER escort to car with .
[2019-11-23 15:56] LABS: Strep pneumoniae Ag, Urine NOT DETECTED
--- NOTE | 2019-12-05 09:45 | PC.NURSE ---
Late entry: NS stop time 11/20 0748 NS stop time 11/20 1431 Rocephin stop time 11/20 1921 Potassium stop time 11/20 1241
== END 2019-11-21 10:45 | disposition home or self-care (01) ==
LOC: ED 19:47 → AC 11-20 11:12
PROVIDERS: Internal Medicine; Admitting Provider Nurse Practitioner Family; Emergency Provider Emergency Medicine; Family Provider Internal Medicine; PCP Internal Medicine; Referring Provider Emergency Medicine; Visit Provider Nurse Practitioner Family
DX: J10.00 Influenza due to other identified influenza virus with unspecified type of pneumonia (principal); R55 Syncope and collapse; J15.9 Unspecified bacterial pneumonia; R19.7 Diarrhea, unspecified; E86.0 Dehydration; E87.6 Hypokalemia; W19.XXXA Unspecified fall, initial encounter; Y92.002 Bathroom of unspecified non-institutional (private) residence as the place of occurrence of the external cause; I10 Essential (primary) hypertension; E78.5 Hyperlipidemia, unspecified; R73.03 Prediabetes; I25.10 Atherosclerotic heart disease of native coronary artery without angina pectoris
CPT/HCPCS: 36415; 70450; 71045; 72125; 80048; 80053; 81001; 82550; 82553; 83036; 83605; 83690; 83735; 84145; 84484; 85025; 85610; 85730; 87040; 87449; 87633; 93005; 93010; 93306; 94667; 96361; 96365; 96366; 96367; 96372; 97161; 97165; 99285; G0378; J0696; J1650; J2405; J3480

== ENCOUNTER → 2020-07-31 19:33 | Outpatient (ROUT) | payer MEDICARE, SELFPAY ==
[2020-07-31 20:02] LABS: Aspartate Aminotransferase 24 IU/L (17-59); BUN Creatinine Ratio 27.3 (6-22); Blood Urea Nitrogen 27 mg/dL (9-20); Calcium 9.3 mg/dL (8.4-10.2); Carbon Dioxide 30 mmol/L (22-32); Chloride 103 mmol/L (98-107); Cholesterol 144 mg/dL (140-199); Estimated Glomerular Filt Rate > 60.0 mL/min (>60); Glucose 106 mg/dL (80-110); HDL Cholesterol 29 mg/dL (40-60); HEMOLYSIS < 15 (0-50); LDL Cholesterol Calculated 75 mg/dL (<100); Potassium 4.3 mmol/L (3.4-5.1); Sodium 140 mmol/L (137-145); Triglycerides 198 mg/dL (35-150)
== END ==
PROVIDERS: Family Provider Internal Medicine; PCP Internal Medicine; Visit Provider Internal Medicine
DX: I10 Essential (primary) hypertension (principal); E78.2 Mixed hyperlipidemia
CPT/HCPCS: 80048; 80061; 84450